=== PATIENT | female | born 1955 | race Caucasian/White ===

== ENCOUNTER 2019-09-14 13:52 | Inpatient (IN) | payer OTHER ==
[~2019-09-14] VITALS: Ht 160 cm; Wt 81.8 kg
[2019-09-14] MEDS ORDERED: IPRATROPIUM 0.5MG/ALBUTEROL 2.5MG INH SOL UD 3ML (DUONEB)(J7620) NEB ONE ×2 (14:30→16:45)
[2019-09-14] MEDS ORDERED: AMLO25TA PO (14:40)
[2019-09-14] MEDS ORDERED: GABA-845 PO (14:42)
--- NOTE | 2019-09-14 14:53 | REP ---
Left os calcis: Two views. History: Trauma. Findings: Axial and lateral views demonstrate prominent Achilles and plantar calcaneal spurs. No calcaneal fracture is seen. No erosive changes seen. Bones, joints and soft tissues are otherwise unremarkable. Impression: Prominent heel spurs. No traumatic abnormality noted. Electronically Signed by Reji Stevenson MD 09/14/2019 02:44 P
[2019-09-14 15:11] LABS: BASO # 0.1 10^3/uL (0.0-0.2); BASO % 0.4 % (0.0-1.0); EOS # 0.2 10^3/uL (0.0-0.5); HEMOGLOBIN 13.3 g/dl (12.0-15.5); LYMPH # 1.4 10^3/uL (1.5-5.0); MEAN CORPUSCULAR HEMOGLOBIN 29.1 pg (27.0-33.0); MEAN CORPUSCULAR HGB CONC 31.7 g/dl (32.0-36.5); MEAN CORPUSCULAR VOLUME 91.9 fl (80.0-96.0); MONO # 0.9 10^3/uL (0.0-0.8); MONO % 5.8 % (0.0-5.0); NEUTROPHILS # 12.6 10^3/uL (1.5-8.5); NEUTROPHILS % 83.4 % (36.0-66.0); PLATELET COUNT, AUTOMATED 254 10^3/uL (150-450); RED BLOOD COUNT 4.57 10^6/uL (4.00-5.40); WHITE BLOOD COUNT 15.1 10^3/uL (4.0-10.0)
--- NOTE | 2019-09-14 15:18 | REP ---
Left great toe series: Four views. History: Trauma. Findings: Four views of the left great toe demonstrate mild osteoarthritic spurring at the first MTP and first IP joints. No fracture or subluxation is seen. No opaque foreign body noted. Impression: Mild osteoarthritis. No fracture seen. Electronically Signed by Reji Stevenson MD 09/14/2019 03:50 P
[2019-09-14 15:31] LABS: ERYTHROCYTE SEDIMENTATION RATE 15 mm/hr (0-30)
[2019-09-14 15:32] LABS: BLOOD UREA NITROGEN 22 MG/DL (7-18); C REACTIVE PROTEIN QUANTITATIV 0.38 MG/DL (0.00-0.30); CALCIUM LEVEL 9.3 MG/DL (8.8-10.2); CARBON DIOXIDE LEVEL 29 MEQ/L (21-32); CHLORIDE LEVEL 105 MEQ/L (98-107); CREATININE FOR GFR 0.86 MG/DL (0.55-1.30); GLOMERULAR FILTRATION RATE > 60.0 (>45); GLUCOSE, FASTING 104 MG/DL (70-100); SODIUM LEVEL 141 MEQ/L (136-145)
[2019-09-14 17:32] LABS: HEMOGLOBIN A1c 6.3 %
[2019-09-14] MEDS ORDERED: EMER1CHW PO (18:12)
[2019-09-14] MEDS ORDERED: ATOR1TAB21 PO (18:12)
[2019-09-14] MEDS ORDERED: CIPRODEX AU (18:12)
[2019-09-14] MEDS ORDERED: VENL75CA47 PO (18:12)
[2019-09-14] MEDS ORDERED: IPRA0.00 INH (18:12)
[2019-09-14] MEDS ORDERED: LEVO25TA34 PO (18:12)
[2019-09-14] MEDS ORDERED: GABA800T4 PO (18:12)
[2019-09-14] MEDS ORDERED: MELO15TA28 PO (18:12)
[2019-09-14] MEDS ORDERED: METF10004 PO (18:12)
[2019-09-14] MEDS ORDERED: LOSA50TA88 PO (18:12)
[2019-09-14] MEDS ORDERED: FURO20TA2 PO (18:12)
[2019-09-14] MEDS ORDERED: TRAZ150T90 PO (18:12)
[2019-09-14] MEDS ORDERED: AMLO10TA5 PO (18:12)
[2019-09-14] MEDS ORDERED: CHAN1PAK13 PO (18:12)
[2019-09-14] MEDS ORDERED: INCR1INH INH (18:12)
[2019-09-14] MEDS ORDERED: ACID1TAB PO (18:12)
[2019-09-14] MEDS ORDERED: DICL1GEL3 TOP (18:12)
[2019-09-14] MEDS ORDERED: FUROSEMIDE 20 MG TAB PO PRN (19:45)
[2019-09-14] MEDS ORDERED: GLUCAGON FOR INJ 1 MG VIAL (J1610) SC PRN (19:45)
[2019-09-14] MEDS ORDERED: DEXTROSE 50% 50 ML SYRINGE IV PRN (19:45)
[2019-09-14] MEDS ORDERED: IPRATROPIUM 0.5MG/ALBUTEROL 2.5MG INH SOL UD 3ML (DUONEB)(J7620) INH PRN (19:45)
[2019-09-14] MEDS ORDERED: GLUCOSE 4 GM CHEW TABLET PO PRN (19:45)
[2019-09-14] MEDS ORDERED: CIPRODEX OTIC SUSP 7.5ML AU PRN (19:45)
--- NOTE | 2019-09-14 19:45 | HPEPDOC ---
[facility] Medical History & Physical Date of Admission Sep 14, 2019 Date of Service: Sep 14, 2019 Attending Physician: BONIFACIO HERNANDEZ MD History and Physical CHIEF COMPLAINT: Left foot injury HISTORY OF PRESENT ILLNESS: [id number] female with past medical history of diabetes mellitus, diabetic neuropathy, COPD, hypothyroidism and hypertension, presents from home with left foot injury. She reports injuring her left foot 4 days ago by dropping a heavy object on it. She reports that she has a history of poor healing due to diabetes mellitus, reports that his been getting worse over the past 4 days, reports serous drainage which is why she came in today. She also reports a wound on her left heel due to injury, which is also draining some serous fluid. She denies any fever, chills, nausea, vomiting, diarrhea. She denies any progression of infection from prior to up into her foot or leg, kareem es any calf redness or tenderness. 10 point review of system is negative except for above PAST MEDICAL HISTORY: 1. Diabetes mellitus. 2. COPD. 3. Diabetic neuropathy. 4. Hypothyroidism. 5. Hypertension. 6. Active smoker PAST SURGICAL HISTORY: 1. Multiple hernia repairs. 2. C-sections. 3. Hysterectomy. SOCIAL HISTORY: Current smoker, a few cigarettes a day, history of one pack per day for over 30 years. Social alcohol use. Smokes marijuana FAMILY HISTORY: Adopted ALLERGIES: Please see below. HOME MEDICATIONS: Please see below. PHYSICAL EXAMINATION: VITAL SIGNS: Please see below. GENERAL: No distress HEENT: Normocephalic, atraumatic, moist mucous membranes NECK: Supple CARDIOVASCULAR EXAMINATION: S1, S2, no murmurs RESPIRATORY EXAMINATION: Clear to auscultation, no wheezing ABDOMINAL EXAMINATION: Soft, nontender, nondistended, positive bowel sounds EXTREMITIES: Left big toe with small cut, minimal surrounding erythema, no tenderness, no drainage. Left heel with small wound, superficial, no drainage, no surrounding erythema or tenderness. SKIN: No rash NEUROLOGICAL EXAMINATION: Alert and oriented 3, no focal deficits PSYCHIATRIC EXAMINATION: Calm and cooperative LABORATORY DATA: See below. IMAGING: Foot x-ray negative for bone involvement MICROBIOLOGY: Please see below. ASSESSMENT: 63-year-old female with history of diabetes mellitus, diabetic neuropathy, COPD, hypothyroidism and hypertension, presents with nonhealing left foot wound. . PLAN: 1. Left foot injury with subsequent wound. Poor healing due to history of diabetes mellitus, reports history of MRSA, empiric vancomycin and Merrem (allergic to penicillins, would like Pseudomonas and anaerobic coverage for now). Podiatry consulted by emergency department, harper Yan pending, blood cultures pending. 2. Diabetes mellitus. Hold home meds, sliding scale insulin before meals and at bedtime 3. COPD Stable, continue home meds 4. Hypertension. Continue home Norvasc and losartan 5. Hypothyroidism. Continue levothyroxine DVT prophylaxis: Heparin subcutaneous GI prophylaxis: Not needed Vital Signs Vital Signs Date Time Temp Pulse Resp B/P (MAP) Pulse Ox O2 Delivery O2 Flow Rate FiO2 09/14/19 19:31 99.7 70 18 154/91 (112) 95 Room Air Laboratory Data Labs 24H Laboratory Tests 2 09/14/19 14:38: Estimated Mean Plasma Glucose 134H, Hemoglobin A1c 6.3 09/14/19 14:45: Immature Granulocyte % (Auto) 0.4, Neutrophils (%) (Auto) 83.4H, Lymphocytes (%) (Auto) 9.0L, Monocytes (%) (Auto) 5.8H, Eosinophils (%) (Auto) 1.0, Basophils (%) (Auto) 0.4, Neutrophils # (Auto) 12.6H, Lymphocytes # (Auto) 1.4L, Monocytes # (Auto) 0.9H, Eosinophils # (Auto) 0.2, Basophils # (Auto) 0.1, Nucleated Red Blood Cells % (auto) 0.0, Erythrocyte Sedimentation Rate 15, Anion Gap 7L, Glomerular Filtration Rate > 60.0, Calcium Level 9.3, C-Reactive Protein, Quantitative 0.38H 09/14/19 17:21: Bedside Glucose (Misc Panel) 94 CBC/BMP Laboratory Tests 09/14/19 14:45 Microbiology Microbiology 09/14/19 Blood Culture, Received Pending 09/14/19 Blood Culture, Received Pending Home Medications Scheduled Amlodipine Besylate (Amlodipine Besylate) 10 Mg Tablet, 10 MG PO DAILY Atorvastatin Calcium (Atorvastatin Calcium) 20 Mg Tablet, 20 MG PO DAILY Diclofenac Sodium (Diclofenac Sodium) 1% 100GM Gel..gram., 1 DOSE TOP TID APPLY TO RIGHT SHOULDER AND RIGHT HIP Gabapentin (Gabapentin) 800 Mg Tablet, 800 MG PO TID Ipratropium/Albuterol Sulfate (Iprat-Albut 0.5-3(2.5) mg/3 ml) 3 Ml Ampul.neb, 1 JOSE INH BID Lactobacillus Acidophilus (Acidophilus) 1 Each Tablet, 1 TAB PO BID Levothyroxine Sodium (Levoxyl) 25 Mcg Tablet, 25 MCG PO DAILY Losartan Potassium (Losartan Potassium) 50 Mg Tablet, 50 MG PO DAILY Meloxicam (Meloxicam) 15 Mg Tablet, 15 MG PO DAILY Metformin HCl (Metformin HCl) 1,000 Mg Tablet, 1,000 MG PO BID Trazodone HCl (Trazodone HCl) 150 Mg Tablet, 150 MG PO QHS Umeclidinium [place] (Incruse Ellipta) 62.5 Mcg Blst.w.dev, 62.5 MCG INH DAILY Varenicline Tartrate (Chantix) 1 Mg Tablet, 1 MG PO DAILY PRESCRIBED BID, BUT PATIENT ONLY TAKES DAILY DUE TO SIDE EFFECTS OF VERY VIVID DREAMS Venlafaxine HCl (Venlafaxine HCl ER) 75 Mg Cap.er.24h, 225 MG PO QHS INCREASING TO VENLAFAXINE ER 150MG, 300MG QHS Vit C/Ascorb Sod/Multivit-Min (Emergen-C 500 mg Chewable Tab) 500 Mg Tab.chew, 1 CHW PO DAILY Scheduled PRN Ciprofloxacin/Dexamethasone (Ciprodex Otic Suspension) 7.5 Ml Drops.susp, 4 DROP AU BID PRN for RECURRENT EAR INFECTIONS Furosemide (Furosemide) 20 Mg Tablet, 20 MG PO DAILY PRN for EDEMA Ipratropium/Albuterol Sulfate (Iprat-Albut 0.5-3(2.5) mg/3 ml) 3 Ml Ampul.neb, 1 JOSE INH BID PRN for SHORTNESS OF BREATH Allergies Coded Allergies: diltiazem (Verified Allergy, Severe, ANAPHYLAXSIS, 09/14/19) Penicillins (Verified Allergy, Unknown, 09/14/19) ANAPH A-FIB/CHADSVASC A-FIB History Current/History of A-Fib/PAF?: No BONIFACIO HERNANDEZ MD Sep 14, 2019 19:45
[2019-09-14] MEDS ORDERED: VENLAFAXINE **XR** 75MG CAPSULE PO SCH (21:00)
[2019-09-14] MEDS ORDERED: HumaLOG INSULIN (NovoLOG) PER UNIT SC SCH (21:00)
[2019-09-14] MEDS ORDERED: traZODone 50 MG TAB PO SCH (21:00)
[2019-09-14] MEDS ORDERED: MEROPENEM IV SCH (21:00)
[2019-09-14] MEDS: HEPARIN SOD (PORCINE) 5000 UNITS/ML VIAL SC SCH (21:28)
[2019-09-14] MEDS: GABAPENTIN 400 MG CAP PO SCH (21:29)
[2019-09-14 21:51] VITALS: BP 146/72
[2019-09-14] MEDS: MEROPENEM INJ 1 GM in IV 1 EA IV SCH (21:52)
--- NOTE | 2019-09-14 22:09 | PHACANCOPD ---
PHARMACY VANCOMYCIN DOSING Pt Demographics Demographics Patient Age:63 , Weight:81.820 , Gender: female Adjusted Body Weight Date: 09/14/19, Adjusted Body Weight: [64.2] Kg Events Past 24 Hours Events Past 24 Hours: NO: Dialysis, Diuretic Therapy, Change in CrCl, Fever, Elevation in WBC, Pending Diagnostics, Pending Procedures, Other Vancomycin Vancomycin indication: FOOT INFECTION Vancomycin Target Ranges: 15-20 mcg/ml Vancomycin Load Y/N: Yes Load Dose Date Time Vancomycin Load Dose: 2G Date:09/14/19 Time: Vancomycin Dose Date: 09/14/19. Current Vancomycin Dose: [1G IV Q12H] Intermittent Dosing?: No Labs Labs Item Value Date Time White Blood Count 15.1 10^3/uL H 09/14/19 1445 Neutrophils # (Auto) 12.6 10^3/uL H 09/14/19 1445 Creatinine 0.86 MG/DL 09/14/19 1445 Micro Microbiology 09/14/19 Blood Culture, Received Pending 09/14/19 Blood Culture, Received Pending Creatinine Clearance Date:09/14/19. Creatinine Clearance: [59ML/MIN]. Assessment and Plan Maintaining Current Dose?: Yes Reason for dose change: No Dose Change Pharmacist Note Pharmacist Note Date: 09/14/19. Pharmacist note: Pt is a 63 year old female being treated being treated for a foot infection goal trough 15-20mcg/ml. The patient has not been treated with vancomycin here at [facility] before. To achieve goal a 2g loading dose will start 09/14/19 @22:00. Maintenance therapy will consist of 1g IV every 12 hours. A trough is scheduled for 09/16/19 @ 09:00. We will continue to monitor and adjust the dose as needed. CHRIS LLANOS PHARMACY Sep 14, 2019 22:09
[2019-09-14] MEDS ORDERED: VANCOMYCIN HCL 1,000 MG, VIAL MATE ADAPTER 1 EACH in D5W 250 ML IV ONE (23:00)
[2019-09-14] MEDS: VANCOMYCIN HCL 1,000 MG, VIAL MATE ADAPTER 1 EACH in D5W 250 ML IV SCH (23:08)
[2019-09-14] MEDS ORDERED: ACETAMINOPHEN TAB 650MG DOSE (2X325MG) PO PRN (23:30)
[2019-09-15] MEDS: MEROPENEM INJ 1 GM in IV 1 EA IV SCH ×2 (05:30→12:26)
[2019-09-15 05:38] VITALS: BP 148/116
[2019-09-15] MEDS ORDERED: LEVOTHYROXINE 25MCG TABLET (0.025MG) PO SCH (06:00)
[2019-09-15] MEDS: HEPARIN SOD (PORCINE) 5000 UNITS/ML VIAL SC SCH ×3 (06:27→12:38)
[2019-09-15 06:28] LABS: HEMATOCRIT 37.8 % (36.0-47.0); HEMOGLOBIN 12.3 g/dl (12.0-15.5); MEAN CORPUSCULAR HEMOGLOBIN 29.2 pg (27.0-33.0); MEAN CORPUSCULAR HGB CONC 32.5 g/dl (32.0-36.5); MEAN CORPUSCULAR VOLUME 89.8 fl (80.0-96.0); PLATELET COUNT, AUTOMATED 192 10^3/uL (150-450); RED BLOOD COUNT 4.21 10^6/uL (4.00-5.40); WHITE BLOOD COUNT 9.9 10^3/uL (4.0-10.0)
[2019-09-15 06:53] LABS: ALBUMIN 3.4 GM/DL (3.2-5.2); ALT/SGPT 25 U/L (12-78); BILIRUBIN,TOTAL 0.6 MG/DL (0.2-1.0); BLOOD UREA NITROGEN 17 MG/DL (7-18); CALCIUM LEVEL 8.7 MG/DL (8.8-10.2); CARBON DIOXIDE LEVEL 32 MEQ/L (21-32); CHLORIDE LEVEL 105 MEQ/L (98-107); CREATININE FOR GFR 0.75 MG/DL (0.55-1.30); GLOMERULAR FILTRATION RATE > 60.0 (>45); GLUCOSE, FASTING 83 MG/DL (70-100); MAGNESIUM LEVEL 1.8 MG/DL (1.8-2.4); POTASSIUM SERUM 3.7 MEQ/L (3.5-5.1); SODIUM LEVEL 141 MEQ/L (136-145); TOTAL PROTEIN 6.8 GM/DL (6.4-8.2)
[2019-09-15] MEDS: HumaLOG INSULIN (NovoLOG) PER UNIT SC SCH ×2 (06:54→12:26)
[2019-09-15] MEDS ORDERED: IPRATROPIUM 0.5MG/ALBUTEROL 2.5MG INH SOL UD 3ML (DUONEB)(J7620) INH SCH (08:00)
[2019-09-15] MEDS ORDERED: LOSARTAN 50 MG TAB PO SCH (09:00)
[2019-09-15] MEDS ORDERED: amLODIPine 10 MG TAB PO SCH (09:00)
[2019-09-15] MEDS ORDERED: ATORVASTATIN 20 MG TAB PO SCH (09:00)
[2019-09-15] MEDS ORDERED: MAG SULF 1GM/100ML (MAG RUN) 1 GM in IV 1 EA IV ONE (09:15)
[2019-09-15] MEDS: GABAPENTIN 400 MG CAP PO SCH ×2 (09:30→16:12)
[2019-09-15 09:31] VITALS: BP 148/116
[2019-09-15] MEDS: VANCOMYCIN HCL 1,000 MG, VIAL MATE ADAPTER 1 EACH in D5W 250 ML IV SCH (09:37)
[2019-09-15] MEDS ORDERED: POTASSIUM CHLORIDE 10 MEQ SR TABLET PO ONE (10:00)
[2019-09-15 14:00] VITALS: BP 143/79
[2019-09-15] MEDS ORDERED: CLIN150C14 PO (15:30)
--- NOTE | 2019-09-15 16:43 | DS.PDOC ---
Discharge Summary General Date of Admission Sep 14, 2019 at 19:34 Date of Discharge 09/15/2019 Attending Physician: BONIFACIO HERNANDEZ MD Discharge Summary PROCEDURES PERFORMED DURING STAY: None. ADMITTING DIAGNOSES: 1. Left foot wound secondary to injury. DISCHARGE DIAGNOSES: 1. Left foot wound secondary to injury. COMPLICATIONS/CHIEF COMPLAINT: Copd/Diabetes Millitus/Htn/Hypothydiodsim. HISTORY OF PRESENT ILLNESS: 63-year-old female with past medical history diabetes mellitus, diabetic neuropathy, COPD, hypothyroidism and hyper tension was admitted for left foot wound. Patient reports history of resistant organisms and poor wound healing due to uncontrolled diabetes mellitus. Patient has no systemic signs of infection, imaging is not concerning for deep infection, wound is not draining, doesn't appear to require any surgical intervention or prolonged IV antibiotics. Patient will be discharged on clindamycin with outpatient follow-up with a mix house tender and PCP. Patient is currently without any complaints, agrees with discharge plan and follow-up. HOSPITAL COURSE: As above. DISCHARGE MEDICATIONS: Please see below. ALLERGIES: Please see below. PHYSICAL EXAMINATION: VITAL SIGNS: Please see below. GENERAL: No distress HEENT: Normocephalic, atraumatic, moist mucous membranes NECK: Supple CARDIOVASCULAR EXAMINATION: S1, S2, no murmurs RESPIRATORY EXAMINATION: Clear to auscultation, no wheezing ABDOMINAL EXAMINATION: Soft, nontender, nondistended, positive bowel sounds EXTREMITIES: Left big toe with small cut, minimal surrounding erythema, no tenderness, no drainage. Left heel with small wound, superficial, no drainage, no surrounding erythema or tenderness. SKIN: No rash NEUROLOGICAL EXAMINATION: Alert and oriented 3, no focal deficits PSYCHIATRIC EXAMINATION: Calm and cooperative LABORATORY DATA: Please see below. IMAGING: X-ray without bone involvement PROGNOSIS: Fair ACTIVITY: As tolerated. DIET: Consistent carbs DISCHARGE PLAN: Patient will follow with mix house tender and PCP in 1-2 weeks DISPOSITION: Home. DISCHARGE INSTRUCTIONS: 1. As above. DISCHARGE CONDITION: Stable. TIME SPENT ON DISCHARGE: Greater than 33 minutes. Vital Signs/I&Os Vital Signs Date Time Temp Pulse Resp B/P (MAP) Pulse Ox O2 Delivery O2 Flow Rate FiO2 09/15/19 14:00 99.3 68 18 143/79 (100) 95 Room Air I&O- Last 24 Hours up to 6 AM 09/15/19 06:00 Intake Total 590 ml Output Total 0 ml Balance 590 ml Laboratory Data Labs 24H Laboratory Tests 2 09/14/19 17:21: Bedside Glucose (Misc Panel) 94 09/14/19 21:25: Bedside Glucose (Misc Panel) 100 09/15/19 06:10: Nucleated Red Blood Cells % (auto) 0.0, Anion Gap 4L, Glomerular Filtration Rate > 60.0, Calcium Level 8.7L, Magnesium Level 1.8, Total Bilirubin 0.6, Aspartate Amino Transf (AST/SGOT) 22, Alanine Aminotransferase (ALT/SGPT) 25, Alkaline Phosphatase 80, Total Protein 6.8, Albumin 3.4, Albumin/Globulin Ratio 1.00 09/15/19 11:06: Bedside Glucose (Misc Panel) 169H CBC/BMP Laboratory Tests 09/15/19 06:10 FSBS Laboratory Tests Test 09/14/19 17:21 09/14/19 21:25 09/15/19 11:06 Range/Units Bedside Glucose (Misc Panel) 94 100 169 80-115 MG/DL Microbiology Microbiology 09/14/19 Blood Culture - Preliminary, Resulted No growth after 24 hours . All specim... 09/14/19 Blood Culture - Preliminary, Resulted No growth after 24 hours . All specim... Discharge Medications Scheduled Amlodipine Besylate (Amlodipine Besylate) 10 Mg Tablet, 10 MG PO DAILY, (Reported) Atorvastatin Calcium (Atorvastatin Calcium) 20 Mg Tablet, 20 MG PO DAILY, (Reported) Clindamycin Hcl (Clindamycin HCl) 150 Mg Capsule, 300 MG PO Q8H Diclofenac Sodium (Diclofenac Sodium) 1% 100GM Gel..gram., 1 DOSE TOP TID, (Reported) APPLY TO RIGHT SHOULDER AND RIGHT HIP Gabapentin (Gabapentin) 800 Mg Tablet, 800 MG PO TID, (Reported) Ipratropium/Albuterol Sulfate (Iprat-Albut 0.5-3(2.5) mg/3 ml) 3 Ml Ampul.neb, 1 JOSE INH BID, (Reported) Lactobacillus Acidophilus (Acidophilus) 1 Each Tablet, 1 TAB PO BID, (Reported) Levothyroxine Sodium (Levoxyl) 25 Mcg Tablet, 25 MCG PO DAILY, (Reported) Losartan Potassium (Losartan Potassium) 50 Mg Tablet, 50 MG PO DAILY, (Reported) Meloxicam (Meloxicam) 15 Mg Tablet, 15 MG PO DAILY, (Reported) Metformin HCl (Metformin HCl) 1,000 Mg Tablet, 1,000 MG PO BID, (Reported) Trazodone HCl (Trazodone HCl) 150 Mg Tablet, 150 MG PO QHS, (Reported) Umeclidinium [place] (Incruse Ellipta) 62.5 Mcg Blst.w.dev, 62.5 MCG INH DAILY, (Reported) Varenicline Tartrate (Chantix) 1 Mg Tablet, 1 MG PO DAILY, (Reported) PRESCRIBED BID, BUT PATIENT ONLY TAKES DAILY DUE TO SIDE EFFECTS OF VERY VIVID DREAMS Venlafaxine HCl (Venlafaxine HCl ER) 75 Mg Cap.er.24h, 225 MG PO QHS, (Reported) INCREASING TO VENLAFAXINE ER 150MG, 300MG QHS Vit C/Ascorb Sod/Multivit-Min (Emergen-C 500 mg Chewable Tab) 500 Mg Tab.chew, 1 CHW PO DAILY, (Reported) Scheduled PRN Ciprofloxacin/Dexamethasone (Ciprodex Otic Suspension) 7.5 Ml Drops.susp, 4 DROP AU BID PRN for RECURRENT EAR INFECTIONS, (Reported) Furosemide (Furosemide) 20 Mg Tablet, 20 MG PO DAILY PRN for EDEMA, (Reported) Ipratropium/Albuterol Sulfate (Iprat-Albut 0.5-3(2.5) mg/3 ml) 3 Ml Ampul.neb, 1 JOSE INH BID PRN for SHORTNESS OF BREATH, (Reported) Allergies Coded Allergies: diltiazem (Verified Allergy, Severe, ANAPHYLAXSIS, 09/14/19) Penicillins (Verified Allergy, Unknown, ANAPHYLAXIS, 09/14/19) BONIFACIO HERNANDEZ MD Sep 15, 2019 16:43
== END 2019-09-15 17:18 | disposition home or self-care (01) | DRG 384 ==
LOC: M ED 13:52 → M ED INP 19:34 → M MSPAV 20:51
PROVIDERS: ADMIT Internal Medicine; ATTEND Internal Medicine
DX: S91.115A Laceration without foreign body of left lesser toe(s) without damage to nail, initial encounter (principal); E11.40 Type 2 diabetes mellitus with diabetic neuropathy, unspecified; W20.8XXA Other cause of strike by thrown, projected or falling object, initial encounter; Y92.9 Unspecified place or not applicable; S90.922A Unspecified superficial injury of left foot, initial encounter; J44.9 Chronic obstructive pulmonary disease, unspecified; E03.9 Hypothyroidism, unspecified; I10 Essential (primary) hypertension; F17.210 Nicotine dependence, cigarettes, uncomplicated; Z79.84 Long term (current) use of oral hypoglycemic drugs; Z79.899 Other long term (current) drug therapy; Z88.0 Allergy status to penicillin; Z88.8 Allergy status to other drugs, medicaments and biological substances

== ENCOUNTER 2019-11-12 11:49 | Emergency (ER) | payer MEDICAID, OTHER, SELFPAY ==
[~2019-11-12] VITALS: Ht 160 cm; Wt 82.5 kg
[~2019-11-12 11:49] MED LIST: ACID1TAB PO; AMLO10TA5 PO; AMLO25TA PO; ATOR1TAB21 PO; CHAN1PAK13 PO; CIPRODEX AU; CLIN150C14 PO; DICL1GEL3 TOP; EMER1CHW PO; FURO20TA2 PO; GABA-845 PO; GABA800T4 PO; INCR1INH INH; IPRA0.00 INH; LEVO25TA34 PO; LOSA50TA88 PO; MELO15TA28 PO; METF10004 PO; TRAZ150T90 PO; VENL75CA47 PO
--- NOTE | 2019-11-12 13:56 | REP ---
Lumbar spine five views: There are no comparisons. Vertebral body heights and alignment are normal. There is degenerative disc disease at every lumbar level, most advanced at the lower lumbar levels. The pedicles and facets are unremarkable. There is no spondylolysis or spondylolisthesis. The sacroiliac articulations are unremarkable. Impression: Multilevel degenerative disc disease. No compression deformity, fracture or listhesis. Electronically Signed by Sage Reina MD 11/12/2019 01:47 P
[2019-11-12 14:05] VITALS: BP 145/75
--- NOTE | 2019-11-12 14:07 | REP ---
Pelvis right hip: Three views. History: Injury in a fall. Findings: AP view of the pelvis shows an intact pelvic ring. No sacral or pelvic fracture is seen. Visualized bowel gas pattern is unremarkable. No ischial or pubic fracture is appreciated. AP and frog-leg views of the right hip show smooth rounded femoral head. There is acetabular osteophyte formation. There is greater trochanteric spurring and vascular calcification. There is a old soft tissue ossicle adjacent to the greater trochanter on the frog-leg view. This is not an acute finding. Impression: No fracture or subluxation. Degenerative changes. Electronically Signed by Reji Stevenson MD 11/12/2019 04:57 P
== END 2019-11-12 14:06 | disposition home or self-care (01) ==
LOC: M ED 11:49
DX: S70.01XA Contusion of right hip, initial encounter (principal); M25.751 Osteophyte, right hip; M70.60 Trochanteric bursitis, unspecified hip; M51.36 Other intervertebral disc degeneration, lumbar region; M54.5 Low back pain; W00.9XXA Unspecified fall due to ice and snow, initial encounter; Y92.099 Unspecified place in other non-institutional residence as the place of occurrence of the external cause; Y93.9 Activity, unspecified; Y99.9 Unspecified external cause status; F17.200 Nicotine dependence, unspecified, uncomplicated; I10 Essential (primary) hypertension; E78.00 Pure hypercholesterolemia, unspecified; J45.909 Unspecified asthma, uncomplicated; J44.9 Chronic obstructive pulmonary disease, unspecified; Z87.01 Personal history of pneumonia (recurrent); G47.30 Sleep apnea, unspecified; Z87.440 Personal history of urinary (tract) infections; Z87.442 Personal history of urinary calculi; K76.0 Fatty (change of) liver, not elsewhere classified; E03.9 Hypothyroidism, unspecified; E11.21 Type 2 diabetes mellitus with diabetic nephropathy; F41.9 Anxiety disorder, unspecified; F32.9 Major depressive disorder, single episode, unspecified; D75.9 Disease of blood and blood-forming organs, unspecified; Z86.14 Personal history of Methicillin resistant Staphylococcus aureus infection; Z79.899 Other long term (current) drug therapy; Z88.0 Allergy status to penicillin; Z88.8 Allergy status to other drugs, medicaments and biological substances

== ENCOUNTER 2019-11-22 10:46 | Emergency (ER) | payer BC, SELFPAY ==
[~2019-11-22] VITALS: Ht 160 cm; Wt 81.9 kg
[2019-11-22 10:47] VITALS: BP 162/88
[2019-11-22 12:30] LABS: ALBUMIN 3.6 GM/DL (3.2-5.2); ALT/SGPT 22 U/L (12-78); BILIRUBIN,TOTAL 0.2 MG/DL (0.2-1.0); BLOOD UREA NITROGEN 26 MG/DL (7-18); CALCIUM LEVEL 8.6 MG/DL (8.8-10.2); CARBON DIOXIDE LEVEL 26 MEQ/L (21-32); CHLORIDE LEVEL 110 MEQ/L (98-107); CREATININE FOR GFR 0.75 MG/DL (0.55-1.30); FREE THYROXINE INDEX 3.3 % (1.3-4.8); GLOMERULAR FILTRATION RATE > 60.0 (>45); GLUCOSE, FASTING 136 MG/DL (70-100); POTASSIUM SERUM 4.5 MEQ/L (3.5-5.1); SODIUM LEVEL 143 MEQ/L (136-145); T UPTAKE 34 % (30-39); THYROXINE (T4) 9.7 UG/DL (4.5-12.0); TOTAL PROTEIN 6.9 GM/DL (6.4-8.2)
[2019-11-22] MEDS ORDERED: MELO15TA28 PO (12:38)
[2019-11-22] MEDS ORDERED: VENL75CA47 PO (12:38)
[2019-11-22] MEDS ORDERED: GABA800T4 PO (12:38)
[2019-11-22] MEDS ORDERED: LOSA50TA88 PO (12:38)
[2019-11-22] MEDS ORDERED: LEVO25TA34 PO (12:39)
[2019-11-22 13:16] LABS: HEMOGLOBIN A1c 6.2 %
== END 2019-11-22 12:49 | disposition home or self-care (01) ==
LOC: M ED 10:46
DX: I10 Essential (primary) hypertension (principal); Z76.0 Encounter for issue of repeat prescription; E11.9 Type 2 diabetes mellitus without complications; J44.9 Chronic obstructive pulmonary disease, unspecified; E07.9 Disorder of thyroid, unspecified; F17.200 Nicotine dependence, unspecified, uncomplicated; Z79.84 Long term (current) use of oral hypoglycemic drugs; Z79.899 Other long term (current) drug therapy; Z88.0 Allergy status to penicillin; Z88.8 Allergy status to other drugs, medicaments and biological substances

== ENCOUNTER → 2019-12-17 | Outpatient (REF) | payer BC | LOC: M LAB REF 12:39 | PROVIDERS: ATTEND Registered Nurse | DX: Z11.4 Encounter for screening for human immunodeficiency virus [HIV] (principal) ==

== ENCOUNTER 2020-07-29 10:59 | Emergency (ER) | payer BC ==
[~2020-07-29] VITALS: Ht 160 cm; Wt 90.8 kg
[~2020-07-29 10:59] MED LIST changes: -AMLO10TA5 PO; +AMLO1TAB25 PO
[2020-07-29] MEDS ORDERED: IPRATROPIUM HFA INHALER 12.9 GRAMS (ATROVENT HFA) INH ONE (12:15)
[2020-07-29] MEDS ORDERED: predniSONE 20 MG TAB PO ONE (12:15)
[2020-07-29] MEDS ORDERED: ALBUTEROL 90 MCG/ACT 8GM HFA INHALER INH ONE (12:15)
--- NOTE | 2020-07-29 12:37 | REPVR ---
PROCEDURE INFORMATION: Exam: XR Chest, 1 View Exam date and time: 07/29/2020 12:19 PM Age: 64 years old Clinical indication: Shortness of breath; Additional info: SOB, cough TECHNIQUE: Imaging protocol: XR of the chest Views: 1 view. COMPARISON: No relevant prior studies available. FINDINGS: Lungs: Unremarkable. No consolidation. Pleural space: Unremarkable. No pleural effusion. No pneumothorax. Heart/Mediastinum: Mild prominence of the cardiac silhouette. Bones/joints: Degenerative change of the spine. Enchondroma versus bone infarct in the left humeral diaphysis. IMPRESSION: Mild prominence of the cardiac silhouette. Electronically signed by: Merlyn Claire On 07/29/2020 12:37:04 PM
[2020-07-29] MEDS ORDERED: PRED20TA PO (13:06)
[2020-07-29] MEDS ORDERED: MUCI600T31 PO (13:06)
[2020-07-29] MEDS ORDERED: DOXY100C37 PO (13:06)
[2020-07-29] MEDS ORDERED: ALBU83IN NEB (13:06)
[2020-07-29 13:08] VITALS: BP 182/79
--- NOTE | 2020-07-30 06:36 | ECGEPIP ---
[facility] - ED Test Date: 2020-07-29 Pat Name: VAL VASQUEZ Department: Room: - Gender: Female Supply Chain Logistics Manager: LISBETH : 1955 Requested By: HANNAH FAITH PA-C. Order Number: [id number] Reading MD: Mark Hurst Measurements Intervals Philip Rate: 56 P: -41 IL: 127 QRS: -26 QRSD: 125 T: 18 QT: 422 QTc: 411 Interpretive Statements SINUS BRADYCARDIA RIGHT BUNDLE BRANCH BLOCK PROBABLE SEPTAL MYOCARDIAL INFARCTION, OF INDETERMINATE AGE NO PRIORS FOR COMPARISON Electronically Signed on 07-30-2020 6:36:13 EDT by Mark Hurst
== END 2020-07-29 13:35 | disposition home or self-care (01) ==
LOC: M ED 10:59
DX: J45.901 Unspecified asthma with (acute) exacerbation (principal); J06.9 Acute upper respiratory infection, unspecified; R00.1 Bradycardia, unspecified; I45.10 Unspecified right bundle-branch block; F17.200 Nicotine dependence, unspecified, uncomplicated; Z79.899 Other long term (current) drug therapy; Z88.0 Allergy status to penicillin; Z88.8 Allergy status to other drugs, medicaments and biological substances
CPT/HCPCS: 71045; 93005; 99284; U0003

== ENCOUNTER → 2021-01-09 | Outpatient (CLI) | payer BC, MEDICARE ==
[~2021-01-09] MED LIST changes: +ALBU83IN NEB; +CIPR7.5D5 AU; -CIPRODEX AU; -CLIN150C14 PO; +CLIN150C15 PO; +DOXY100C37 PO; +MUCI600T31 PO; +PRED20TA PO
--- NOTE | 2021-01-09 14:38 | REP ---
INDICATION: TOBACCO,ABUSE. COMPARISON: None. FINDINGS: There are no lung nodules or masses. There are no infiltrates or pleural effusions. There are artifacts from mediastinal fat inferiorly in the lingula and inferiorly in the right middle lobe. IMPRESSION: Category [address] low-dose lung screening CT of the chest. The probability of malignancy is less than 1%. Depending on risk factors consider annual follow-up low-dose lung screening chest CT. <Electronically signed by Sage Reina > 01/09/21 [id number]
== END ==
LOC: M RAD 10:52
PROVIDERS: ATTEND Nurse Practitioner Family
DX: Z72.0 Tobacco use (principal)

== ENCOUNTER → 2021-02-09 | Outpatient (REF) | payer MEDICARE | LOC: M SFHCLERA 11:39 | PROVIDERS: ATTEND Nurse Practitioner Family | DX: R19.7 Diarrhea, unspecified (principal); R14.0 Abdominal distension (gaseous); R10.13 Epigastric pain ==

== ENCOUNTER → 2021-05-01 | Outpatient (CLI) | payer MEDICARE ==
[~2021-05-01] MED LIST changes: -DOXY100C37 PO; +DOXY1CAP62 PO; +GABA-283 PO; -GABA-845 PO
--- NOTE | 2021-05-01 23:06 | ECWPNPC ---
PATIENT NAME: VAL VASQUEZ : 1955 GENDER: FEMALE VISIT DATE: 05/01/2021 DISCHARGE DATE: 05/01/21942 VISIT LOCKED DATE TIME: PHYSICIAN: ALBER FARIAS PHYSICIAN PAGER NO: ACTIVE RESOURCE: ALBER FARIAS REASON FOR APPOINTMENT 1. DDD AND OSTEOARTHRITIS HISTORY OF PRESENT ILLNESS DEPRESSION SCREENING: PHQ-2 (2015 EDITION) LITTLE INTEREST OR PLEASURE IN DOING THINGS?NOT AT ALL FEELING DOWN, DEPRESSED, OR HOPELESS?NOT AT ALL TOTAL SCORE0 GENERAL: 65-YEAR-OLD FEMALE BEING REFERRED BY [facility], DR. JONO PITTS ,FOR PERSISTENT NECK AND LOW BACK PAIN. ALSO HAS A HISTORY OF NEUROPATHY AND NIDDM. HAS SUFFERED FROM CHRONIC PAIN FOR SEVERAL YEARS. HAD INJECTION THERAPY WITH [facility] IN [place] APPROXIMATELY 1 YEAR AGO. STATES SHE HAD INJECTIONS INTO HER NECK AND LOW BACK. WORST AREA OF PAIN IS OVER RIGHT SHOULDER. PAIN IS AGGRAVATED WITH RANGE OF JOINT MOTION OF THE RIGHT ARM AND NECK. HAS BEEN ON CELEBREX IN THE PAST THAT HAS BEEN HELPFUL. CURRENTLY ON GABAPENTIN PRESCRIBED BY PRIMARY CARE AND HAVING GOOD RESULTS WITH NEUROPATHY IN THE LOWER EXTREMITIES. 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 DENIES BOWEL OR BLADDER INCONTINENCE. DENIES RECENT FEVER ILLNESS OR SUDDEN WEIGHT LOSS. -. FALL RISK SCREENING: SCREENING : NO FALLS REPORTED IN THE LAST YEAR. PAIN SCREENING: PATIENT HAS A COMPLAINT OF ACUTE OR CHRONIC PAIN :YES LOCATION OF PAIN:NECK, LOW BACK INTENSITY OF PAIN (SCALE OF 1 TO 10):8 WHAT DOES YOUR PAIN FEEL LIKE:BURNING, CONTINOUS, TENDER, THROBBING DURATION:CONTINOUS, CONSTANT, ALL DAY PAIN IS INCREASED BY:PROLONGED STANDING, OTHERS WALKING PAIN IS DECREASED BY:USE OF PAIN MEDICATIONS, OTHERS CELEBREX NURSING NOTE: -. PAIN CENTER INTAKE QUESTIONS: DO YOU HAVE A HISTORY OF MRSA? :NO DO YOU TAKE A BLOOD THINNERS? :NO DO YOU HAVE ANY BLEEDING DISORDERS? :NO ANY NEW NUMBNESS OR WEAKNESS IN YOUR LEGS OR ARMS? :YES BOTH HANDS AND LEGS ANY PACEMAKER,DEFIBRILLATOR, OR DORSAL COLUMN STIMULATOR? :NO DO YOU HAVE ANY RASHES OR OPEN SORES? :NO ARE YOU ALLERGIC TO IV DYE? :NO ARE YOU DIABETIC? :YES TYPE 2 ANY NEW PROBLEMS WITH YOUR MEDICATIONS? :NO HAVE YOU RECEIVED A VACCINE IN THE PAST 30 DAYS? :NO DO YOU PLAN TO RECEIVE A VACCINE IN THE NEXT 21 DAYS? :NO DO YOU NEED ANY PRESCRIPTION? :NO DO YOU TAKE ANY IMMUNOSUPPRESSIVE MEDICATIONS? :NO IS THERE A CHANCE YOU COULD BE ? :NO ARE YOU BREAST FEEDING? :NO CURRENT MEDICATIONS TAKING VENLAFAXINE HCL ER 75 MG CAPSULE EXTENDED RELEASE 24 HOUR TAKE THREE CAPSULES BY MOUTH EVERY DAY ORAL ONCE A DAY TAKING CELECOXIB 200 MG CAPSULE TAKE ONE CAPSULE BY MOUTH EVERY DAY NEEDED ORAL , NOTES: NOT RIGHT NOW TAKING GLUCOMETER DIRECTED , NOTES: DISPENSE BRAND COVERED BY INSURANCE ICD10 E11.9 TAKING BLOOD GLUCOSE TEST - STRIP DIRECTED IN VITRO TWICE DAILY, NOTES: DISPENSE BRAND COVERED BY INSURANCE ICD10 E11.9 TAKING LANCETS 30G - MISCELLANEOUS DIRECTED INTRAVENOUSLY TWICE DAILY, NOTES: DISPENSE BRAND COVERED BY INSURANCE ICD10 E11.9 TAKING ALBUTEROL SULFATE HFA 108 (90 BASE) MCG/ACT AEROSOL SOLUTION 1 PUFF NEEDED INHALATION EVERY 4 HRS TAKING INCRUSE ELLIPTA 62.5 MCG/INH AEROSOL POWDER BREATH ACTIVATED 1 PUFF INHALATION ONCE A DAY TAKING GLUCOMETER 1 DIRECTED BID FOR CHECKING BLOOD SUGAR, NOTES: DISPENSE BRAND COVERED BY INSURANCE, ICD10: E11.9 TAKING TEST STRIPS - DIRECTED BID W/ GLUCOMETER FOR CHECKING BLOOD SUGAR, NOTES: DISPENSE BRAND COVERED BY INSURANCE, ICD10: E11.9 TAKING ATORVASTATIN CALCIUM 40 MG TABLET 1 TABLET ORAL ONCE A DAY TAKING AMLODIPINE BESYLATE 10 MG TABLET 1 TABLET ORAL ONCE A DAY TAKING LOSARTAN POTASSIUM 50 MG TABLET 1 TABLET ORAL ONCE A DAY TAKING MELOXICAM 15 MG TABLET 1 TABLET ORAL ONCE A DAY TAKING GABAPENTIN 800 MG TABLET TAKE ONE TABLET BY MOUTH THREE TIMES A DAY ORAL THREE TIMES DAILY TAKING METFORMIN HCL 1000 MG TABLET 1 TABLET WITH A MEAL ORAL BID TAKING LEVOTHYROXINE SODIUM 25 MCG TABLET TAKE ONE TABLET BY MOUTH EVERY DAY ORAL DAILY TAKING TRAZODONE HCL 150 MG TABLET TAKE ONE TABLET BY MOUTH AT BEDTIME ORAL ONCE A DAY TAKING ALBUTEROL SULFATE (2.5 MG/3ML) 0.083% NEBULIZATION SOLUTION 3 ML NEEDED INHALATION EVERY 6 HRS NOT-TAKING PREDNISONE 20 MG TABLET 2 TABLET ORALLY ONCE A DAY NOT-TAKING DOXYCYCLINE MONOHYDRATE 100 MG CAPSULE 1 CAPSULE ORALLY BID NOT-TAKING NITROFURANTOIN MONOHYD MACRO 100 MG CAPSULE TAKE ONE CAPSULE BY MOUTH TWICE A DAY FOR 7 DAYS ORAL MEDICATION LIST REVIEWED AND RECONCILED WITH THE PATIENT PAST MEDICAL HISTORY TYPE 2 DIABETES HTN OSTEOARTHRITIS COPD NEUROPATHY- LEGS AND HANDS ASTHMA BACK BACK HIGH CHOLESTEROL DEPRESSION ANXIETY NECK PAIN MODERNA 1ST: 01/04/2021 2ND: 02/01/2021 ALLERGIES PENICILLIN (FOR ALLERGIES USE ONLY): ANAPHYLAXIS - ALLERGY CARDIZEM: ANAPHYLAXIS SURGICAL HISTORY C-SECTIONS 2X 1975/1977 HYSTERECTOMY 1979 CARPEL TUNNEL RIGHT HAND DOG BITE SURGERY 1979' HERNIA REPAIR X9 FAMILY HISTORY FATHER: MOTHER: SON(S): ALIVE DAUGHTER(S): ALIVE 1 SON(S) , 1 DAUGHTER(S) - HEALTHY. FAMILY HISTORY UNKNOWN - PT ADOPTED. SOCIAL HISTORY GENERAL: TOBACCO USE ARE YOU A:CURRENT SMOKER ARE YOU INTERESTED IN QUITTING?READY TO QUIT COUNSELED THE PATIENT ON TOBACCO USE, CESSATION IUNOMNQV32/12/2021 HOW MANY CIGARETTES A DAY DO YOU SMOKE?5 OR LESS HOW SOON AFTER YOU WAKE UP DO YOU SMOKE YOUR FIRST CIGARETTE?AFTER 60 MIN HOW OFTEN DO YOU SMOKE CIGARETTES?SOME DAYS, BUT NOT EVERY DAY SMOKING CESSATION INFORMATION GIVEN02/09/2021 VAPORNO E-CIGARETTENO LATEX QUESTIONNAIRE LATEX ALLERGY : HAVE YOU EVER DEVELOPED ANY TYPE OF REACTION AFTER HANDLING LATEX PRODUCTS SUCH RUBBER GLOVES, CONDOMS, DIAPHRAGMS, BALLOONS, SOCKS, OR UNDERWEAR?NO LATEX ALLERGY : HAVE YOU EVER DEVELOPED ANY TYPE OF REACTION DURING OR AFTER DENTAL APPOINTMENT, VAGINAL/RECTAL EXAMINATION, SURGICAL PROCEDURE, OR ANY OTHER EXPOSURE?NO LATEX RISK : HAVE YOU EVER HAD ANY DIFFICULTY BREATHING OR HIVES AFTER EATING OR HANDLING ANY FRUITS, OR VEGETABLES; SUCH KIWI, BANANAS, STONE FRUITS, OR CHESTNUTSNO LATEX RISK : DO YOU HAVE A PREVIOUS PERSONAL HISTORY OF MORE THAN NINE SURGERIES, SPINA BIFIDA, OR REPEATED CATHERIZATIONS? NO LATEX RISK : ARE YOU FREQUENTLY EXPOSED TO LATEX PRODUCTS IN YOUR OCCUPATION?NO DATE ASKED : 05/01/2021 ALCOHOL USE: YES, VERY RARELY. LUNG CANCER SCREENING SMOKING STATUS:CURRENT SMOKER IS THE PATIENT BETWEEN THE AGE OF 55 AND 77?YES HAS THE PATIENT EVER BEEN DIAGNOSED WITH LUNG CANCER?NO PACK YEARS = NUMBER OF PACKS PER DAY SMOKED X NUMBER OF YEARS SMOKED:40 CREATE REFERRAL:GENERATE AND CREATE REFERRAL TO THE ONCOLOGY NURSE NAVIGATOR (SMP) LISTING USING THE LDCT SCAN PROCEDURE DISCLAIMER:PLEASE ADD DISCLAIMER FROM BROWSE SECTION OF THE NOTE BMI CARE GOAL FOLLOW-UP ABOVE NORMAL BMI FOLLOW-UPGIVING ENCOURAGEMENT TO EXERCISE ALCOHOL SCREENING DID YOU HAVE A DRINK CONTAINING ALCOHOL IN THE PAST YEAR?YES HOW OFTEN DID YOU HAVE SIX OR MORE DRINKS ON ONE OCCASION IN THE PAST YEAR?NEVER (0 POINTS) HOW MANY DRINKS DID YOU HAVE ON A TYPICAL DAY WHEN YOU WERE DRINKING IN THE PAST YEAR?1 OR 2 (0 POINTS) HOW OFTEN DID YOU HAVE A DRINK CONTAINING ALCOHOL IN THE PAST YEAR?MONTHLY OR LESS (1 POINT) POINTS1 INTERPRETATIONNEGATIVE RECREATIONAL DRUG USE DRUG USE?YES MARIJUANA CAFFEINE CAFFEINE USE?YES HOW OFTEN AND HOW MUCH? 3-4 CUPS OF COFFEE PER DAY SEXUAL HX HAD SEX IN THE LAST 12 MONTHS (VAGINAL, ORAL, OR ANAL)?YES WITHMEN ONLY USE PROTECTION?NO HAVE YOU EVER HAD AN STD?NO HIV / HEP-C SCREENING HIV TEST OFFERED TO PATIENT:YES DATE OFFERED:09/26/2020 TEST ACCEPTED:YES HEP-C TEST OFFERED TO PATIENT:YES DATE OFFERED:09/26/2020 TEST ACCEPTED:YES BROCHURE PROVIDED TO PATIENTYES SHINTO [id number] LANGUAGE LANGUAGES SPOKEN:INDIAN EDUCATION LEVEL OF EDUCATION:COLLEGE LEARNING BARRIERS / SPECIAL NEEDS BARRIERS TO LEARNING?YES COMMENTS SHORT TERM MEMORY LOST HEARING IMPAIRED?YES : BOTH EARS VISION IMPAIRED?YES :CORRECTIVE LENSES COGNITIVELY IMPAIRED?NO READINESS TO LEARN?YES LEARNING PREFERENCES?YES :HANDOUTS, DEMONSTRATION/VERBAL INSTRUCTION LEARNING CAPABILITIES PRESENT?YES EMOTIONAL BARRIERS?YES COMMENTS DEPRESSION ,ANXIETY SPECIAL DEVICES?YES :CANE PRN BRANCH OFFICE ADMINISTRATOR NEEDED?NO DOMESTIC VIOLENCE STATUS: DO YOU FEEL SAFE IN YOUR ENVIRONMENT?YES OCCUPATION: UNEMPLOYED. DIET: SUGAR CONTROLLED. EXERCISE: WALKS. MARITAL STATUS: . OTHERS AT HOME: SON. HOSPITALIZATION/MAJOR DIAGNOSTIC PROCEDURE TOE INFECTION - IV ANTIBIOTIC @ [facility] 08/2019 SURG REVIEW OF SYSTEMS CONSTITUTIONAL: RECENT ILLNESS DENIES . FEVER DENIES . WEIGHT LOSS DENIES . MUSCULOSKELETAL: JOINT PAIN DENIES . JOINT STIFFNESS DENIES . GASTROENTEROLOGY: BOWEL INCONTINENCE DENIES . BLOOD IN STOOL DENIES . HEMATOLOGY/LYMPH: DENIES . BLEEDING DISORDER DENIES . NEUROLOGY: HISTORY OF SEVERE HEADACHES NOT MENTIONED DENIES . SEIZURES DENIES . CARDIOLOGY: HISTORY OF CHEST PAIN,IRREGULAR HEART BEAT NOT MENTIONED DENIES . SHORTNESS OF BREATH DENIES . RESPIRATORY: COUGH DENIES . SHORTNESS OF BREATH DENIES . ENDOCRINOLOGY: THYROID DISEASE DENIES . DIABETES DENIES . HEENT: CHANGE IN VISION DENIES . LOSS OF HEARING DENIES . TROUBLE SWALLOWING DENIES . PSYCHOLOGY: ANXIETY DENIES . DEPRESSION DENIES . UROLOGY: URINARY INCONTINENCE DENIES . BLOOD IN URINE DENIES . VITAL SIGNS WT 203 LBS, HT 63 IN, BMI 35.96 INDEX, BP 126/66 MM HG, HR 65 /MIN, RR 18 /MIN, TEMP 97.2 F, OXYGEN SAT % 96%, SAFE IN ENV? (Y/N) YEST.AVIVA MOELLER. EXAMINATION GENERAL EXAMINATION: HEENT: HEAD:, NORMOCEPHALIC, EYES:, EYES NORMAL, NOSE:, NOSE CLEAR, THROAT: NORMAL. NECK:NO LYMPHADENOPATHY, SUPPLE, NO THYROMEGALLY. LUNGS:CLEAR TO AUSCULTATION BILATERALLY, NO WHEEZES, RHONCHI, RALES. HEART:NO MURMURS, REGULAR RATE AND RHYTHM. ABDOMEN:SOFT AND NOT TENDER, NON-DISTENDED. MUSCULOSKELETAL:NORMAL RANGE OF MOTION. TRIGGER POINTS: ELICITED WITH PALPATION OVER CERVICAL SPINOUS PROCESSES AND ACROSS THE TRAPEZIUS MUSCLES BILATERALLY R>L. RESTRICTION OF ROM IS NOTED. INCREASED PAIN NOTED OVER THESE AREAS WITH RANGE OF JOINT MOTION OF THE RIGHT ARM AND NECK.. LUMBAR:MUSCLE STRENGTH TESTING 5/5 BILATERAL, PALPATION: + FOR PAIN OVER L/S SPINE. + FOR PAIN OVER L/S PARSPINALS. THORACIC SPINE: NEGATIVE FOR PAIN WITH PALPATION OF THORACIC SPINE. NEGATIVE FOR PAIN WITH PALPATION OF THORACIC PARASPINAL. CERVICAL:+ FOR PAIN WITH PALPATION OF CERVICAL SPINE. + FOR PAIN WITH PALPATION OF CERVICAL PARASPINALS. NEGATIVE FOR PAIN WITH PALPATION OF TRAPEZIUS BILAT. SKIN: NORMAL, NO RASH. NEUROLOGIC EXAM:ALERT AND ORIENTED X 3, NORMAL SENSATION TO LIGHT TOUCH UPPER/LOWER EXTREMITIES. DIAGNOSTIC TESTS REVIEWED MRI C SPINE-12/22/2020 MRI L-SPINE-12/22/2020 NCS UPPER -2020. DIAGNOSTIC: . ASSESSMENTS MYALGIA, OTHER SITE - M79.18 (PRIMARY) ARTHROPATHY, UNSPECIFIED - M12.9 TREATMENT MYALGIA, OTHER SITE START CELEBREX CAPSULE, 200 MG, 1 CAPSULE WITH FOOD, ORALLY, ONCE A DAY, 30 DAY(S), 30, REFILLS 2 START TIZANIDINE HCL TABLET, 2 MG, 1 TABLET NEEDED, ORALLY, BEFORE BEDTIME, 30 DAYS, 30, REFILLS 1 MEDICATION: PAIN VALIUM TAB 2MG ORALLY (DIAZEPAM) (ORDERED FOR 05/15/2021) MEDICATION: PAIN OXYCODONE HCL TAB 5MG ORALLY (ORDERED FOR 05/15/2021) NOTES: DISCUSSED TREATMENT OPTIONS TO INCLUDE INJECTION THERAPY AND MEDICATION MANAGEMENT. TODAY SHE IS AGREEABLE TO WORK ON RIGHT SHOULDER PAIN ISSUES. I HAVE PRESCRIBED TIZANIDINE 2 MG TO TAKE AT NIGHTTIME FOR MUSCLE SPASMS ASSOCIATED WITH DISRUPTION IN HER SLEEP. I HAVE ORDERED CELEBREX 200 MG ONCE DAILY FOR GENERALIZED ARTHROPATHY. PT 2 TIMES A WEEK X6 WEEKS FOR MYOFASCIAL RELEASE RIGHT SHOULDER AND NECK. TRIGGER POINT INJECTIONS RIGHT NECK, RIGHT SHOULDER,RIGHT THORACIC PRINTED AND REVIEWED PRE PROCEDURE INFORMATION, PATIENT VERBALIZED UNDERSTANDING MARIO MOELLER. REFERRAL TO:PHYSICAL THERAPIST REASON:2XWK X 6 WKS,MYOFASCIAL RELEASE,STRETCHING,MASSAGE OTHERS CLINICAL NOTES: ISTOP REGISTRY REVIEWED AND DEMONSTRATES COMPLIANCE. BRINGS IN MEDICATIONS WHICH IS APPROPRIATE FOR WHAT WAS DISPENSED. RECENT URINE TOXICOLOGY REVIEWED. NO UNAUTHORIZED MEDICATIONS. NO ILLICIT SUBSTANCES AND PRESCRIBED MEDICATIONS WERE PRESENT. . PROCEDURE CODES [id number] ESTABILISHED PATIENT [facility] F[facility] CHARGE DISPOSITION & COMMUNICATION FOLLOW UP POST/F/U PT (REASON: TRIGGER POINT INJECTIONS RIGHT NECK RIGHT SHOULDER,RIGHT THORACIC,FOLLOW UP PT) ELECTRONICALLY SIGNED BY SUSANNA VALDIVIA ON 05/01/2021 AT 03:19 PM EDT DISCLAIMER : THIS IS A VISIT SUMMARY EXTRACTED FROM THE [email or web address] CHART. IT IS NOT A COPY OF THE [email or web address] PROGRESS NOTE. BAKARI
== END ==
LOC: M PAIN 08:30
PROVIDERS: ATTEND Nurse Practitioner Family
DX: M79.18 Myalgia, other site (principal); M12.9 Arthropathy, unspecified; E11.40 Type 2 diabetes mellitus with diabetic neuropathy, unspecified; J44.9 Chronic obstructive pulmonary disease, unspecified; F17.210 Nicotine dependence, cigarettes, uncomplicated; Z86.59 Personal history of other mental and behavioral disorders; Z88.0 Allergy status to penicillin; Z88.8 Allergy status to other drugs, medicaments and biological substances; Z79.51 Long term (current) use of inhaled steroids; Z79.84 Long term (current) use of oral hypoglycemic drugs; Z79.899 Other long term (current) drug therapy

== ENCOUNTER → 2021-05-15 | Outpatient (CLI) | payer MEDICARE | LOC: M LABSMTC 10:14 | PROVIDERS: ATTEND Anesthesiology | DX: Z01.812 Encounter for preprocedural laboratory examination (principal); Z20.822 Contact with and (suspected) exposure to COVID-19 ==

== ENCOUNTER → 2021-05-19 | Outpatient (CLI) | payer MEDICARE ==
[~2021-05-19] MED LIST changes: +BUPIVACAINE HCL 0.25% 10ML VIAL As Ordered ONE; +BUPIVACAINE HCL 0.25% 30ML VIAL As Ordered ONE; +TRIAMCINOLONE ACETONIDE SUSP 40 MG/ML VIAL (J3301) As Ordered ONE; +diazePAM 2 MG TAB As Ordered ONE; +oxyCODONE 5MG TAB As Ordered ONE
--- NOTE | 2021-05-24 00:22 | ECWPNPC ---
PATIENT NAME: VAL VASQUEZ : 1955 GENDER: FEMALE VISIT DATE: 05/19/2021 DISCHARGE DATE: 05/19/21 1037 VISIT LOCKED DATE TIME: PHYSICIAN: KIMBERLY MICHEL MD PHYSICIAN PAGER NO: ACTIVE RESOURCE: KIMBERLY MICHEL MD REASON FOR APPOINTMENT 1. TRIGGER POINT INJECTIONS RIGHT NECK RIGHT SHOULDER,RIGHT THORACIC HISTORY OF PRESENT ILLNESS GENERAL: FALL RISK SCREENING: SCREENING : NO FALLS REPORTED IN THE LAST YEAR. PAIN SCREENING: PATIENT HAS A COMPLAINT OF ACUTE OR CHRONIC PAIN :YES LOCATION OF PAIN:NECK, UPPER BACK, OTHER: INTENSITY OF PAIN (SCALE OF 1 TO 10):10 WHAT DOES YOUR PAIN FEEL LIKE:ACHING, STABBING, TENDER, SORE, OTHER "GRABBING" DURATION:CONTINOUS, AWAKENS FROM SLEEP PAIN IS INCREASED BY:ACTIVITIES, PROLONGED STANDING, OTHERS WALKING PAIN IS DECREASED BY:USE OF PAIN MEDICATIONS, OTHERS CELEBREX PLAN/GOALS/TREATMENT/INTERVENTION/FOLLOW UP:SEE PLAN NURSING NOTE: -. PAIN CENTER INTAKE QUESTIONS: DO YOU HAVE A HISTORY OF MRSA? :NO DO YOU TAKE A BLOOD THINNERS? :NO DO YOU HAVE ANY BLEEDING DISORDERS? :NO ANY NEW NUMBNESS OR WEAKNESS IN YOUR LEGS OR ARMS? :NO ANY PACEMAKER,DEFIBRILLATOR, OR DORSAL COLUMN STIMULATOR? :NO DO YOU HAVE ANY RASHES OR OPEN SORES? :NO ARE YOU ALLERGIC TO IV DYE? :NO ARE YOU DIABETIC? :YES FSBS: 116 ANY NEW PROBLEMS WITH YOUR MEDICATIONS? :NO HAVE YOU RECEIVED A VACCINE IN THE PAST 30 DAYS? :NO DO YOU PLAN TO RECEIVE A VACCINE IN THE NEXT 21 DAYS? :NO DO YOU TAKE ANY IMMUNOSUPPRESSIVE MEDICATIONS? :NO ANY HISTORY OF SEIZURES? :NO ANY HISTORY OF CARDIAC ISSUES OR EVENTS? :NO DO YOU HAVE ANY KIDNEY OR LIVER DISEASE? :NO DO YOU HAVE SLEEP APNEA? :YES DO YOU WEAR A CPAP?NO ANY RECENT HEAD INJURY? :NO DO YOU HAVE ANY NEW INFECTIONS? :NO IS THERE A CHANCE YOU COULD BE ? :N/A ARE YOU BREAST FEEDING? :N/A WHEN DID YOU LAST EAT? : 0245 WHEN DID YOU LAST DRINK? : 0800 WHAT DID YOU LAST DRINK? : WATER NAME OF PERSON DRIVING YOU HOME? : [employer]SPORT[employer] DO YOU HAVE ANY OTHER QUESTIONS OR CONCERNS? 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 TAKING ALBUTEROL SULFATE HFA 108 (90 BASE) MCG/ACT AEROSOL SOLUTION 1 PUFF NEEDED INHALATION EVERY 4 HRS TAKING INCRUSE ELLIPTA 62.5 MCG/INH AEROSOL POWDER BREATH ACTIVATED 1 PUFF INHALATION ONCE A DAY TAKING GLUCOMETER 1 DIRECTED BID FOR CHECKING BLOOD SUGAR, NOTES: DISPENSE BRAND COVERED BY INSURANCE, ICD10: E11.9 TAKING TEST STRIPS - DIRECTED BID W/ GLUCOMETER FOR CHECKING BLOOD SUGAR, NOTES: DISPENSE BRAND COVERED BY INSURANCE, ICD10: E11.9 TAKING ATORVASTATIN CALCIUM 40 MG TABLET 1 TABLET ORAL ONCE A DAY TAKING AMLODIPINE BESYLATE 10 MG TABLET 1 TABLET ORAL ONCE A DAY, NOTES: 629 TAKING LOSARTAN POTASSIUM 50 MG TABLET 1 TABLET ORAL ONCE A DAY, NOTES: 629 TAKING MELOXICAM 15 MG TABLET 1 TABLET ORAL ONCE A DAY, NOTES: 05/18/21 TAKING GABAPENTIN 800 MG TABLET TAKE ONE TABLET BY MOUTH THREE TIMES A DAY ORAL THREE TIMES DAILY, NOTES: 629 TAKING METFORMIN HCL 1000 MG TABLET 1 TABLET WITH A MEAL ORAL BID, NOTES: 05/18/21 1800 TAKING LEVOTHYROXINE SODIUM 25 MCG TABLET TAKE ONE TABLET BY MOUTH EVERY DAY ORAL DAILY TAKING TRAZODONE HCL 150 MG TABLET TAKE ONE TABLET BY MOUTH AT BEDTIME ORAL ONCE A DAY TAKING ALBUTEROL SULFATE (2.5 MG/3ML) 0.083% NEBULIZATION SOLUTION 3 ML NEEDED INHALATION EVERY 6 HRS TAKING CELEBREX 200 MG CAPSULE 1 CAPSULE WITH FOOD ORALLY ONCE A DAY, NOTES: CELECOXIB; 629 TAKING TIZANIDINE HCL 2 MG TABLET 1 TABLET NEEDED ORALLY BEFORE BEDTIME, NOTES: 05/18/21 NOT-TAKING PREDNISONE 20 MG TABLET 2 TABLET ORALLY ONCE A DAY NOT-TAKING DOXYCYCLINE MONOHYDRATE 100 MG CAPSULE 1 CAPSULE ORALLY BID NOT-TAKING NITROFURANTOIN MONOHYD MACRO 100 MG CAPSULE TAKE ONE CAPSULE BY MOUTH TWICE A DAY FOR 7 DAYS ORAL MEDICATION LIST REVIEWED AND RECONCILED WITH THE PATIENT PAST MEDICAL HISTORY TYPE 2 DIABETES HTN OSTEOARTHRITIS COPD NEUROPATHY- LEGS AND HANDS ASTHMA BACK BACK HIGH CHOLESTEROL DEPRESSION ANXIETY NECK PAIN MODERNA 1ST: 01/04/2021 2ND: 02/01/2021 ALLERGIES PENICILLIN (FOR ALLERGIES USE ONLY): ANAPHYLAXIS - ALLERGY CARDIZEM: ANAPHYLAXIS - ALLERGY FAMILY HISTORY FATHER: MOTHER: SON(S): ALIVE DAUGHTER(S): ALIVE 1 SON(S) , 1 DAUGHTER(S) - HEALTHY. FAMILY HISTORY UNKNOWN - PT ADOPTED. SOCIAL HISTORY GENERAL: TOBACCO USE ARE YOU A:CURRENT SMOKER ARE YOU INTERESTED IN QUITTING?READY TO QUIT COUNSELED THE PATIENT ON TOBACCO USE, CESSATION [id number]/29/2021 HOW MANY CIGARETTES A DAY DO YOU SMOKE?5 OR LESS HOW SOON AFTER YOU WAKE UP DO YOU SMOKE YOUR FIRST CIGARETTE?AFTER 60 MIN HOW OFTEN DO YOU SMOKE CIGARETTES?SOME DAYS, BUT NOT EVERY DAY SMOKING CESSATION INFORMATION GIVEN02/09/2021 VAPORNO E-CIGARETTENO LATEX QUESTIONNAIRE LATEX ALLERGY : HAVE YOU EVER DEVELOPED ANY TYPE OF REACTION AFTER HANDLING LATEX PRODUCTS SUCH RUBBER GLOVES, CONDOMS, DIAPHRAGMS, BALLOONS, SOCKS, OR UNDERWEAR?NO LATEX ALLERGY : HAVE YOU EVER DEVELOPED ANY TYPE OF REACTION DURING OR AFTER DENTAL APPOINTMENT, VAGINAL/RECTAL EXAMINATION, SURGICAL PROCEDURE, OR ANY OTHER EXPOSURE?NO LATEX RISK : HAVE YOU EVER HAD ANY DIFFICULTY BREATHING OR HIVES AFTER EATING OR HANDLING ANY FRUITS, OR VEGETABLES; SUCH KIWI, BANANAS, STONE FRUITS, OR CHESTNUTSNO LATEX RISK : DO YOU HAVE A PREVIOUS PERSONAL HISTORY OF MORE THAN NINE SURGERIES, SPINA BIFIDA, OR REPEATED CATHERIZATIONS? NO LATEX RISK : ARE YOU FREQUENTLY EXPOSED TO LATEX PRODUCTS IN YOUR OCCUPATION?NO DATE ASKED : 05/18/2021 ALCOHOL USE: YES, VERY RARELY. LUNG CANCER SCREENING HAS THE PATIENT EVER BEEN DIAGNOSED WITH LUNG CANCER?NO IS THE PATIENT BETWEEN THE AGE OF 55 AND 77?YES DISCLAIMER:PLEASE ADD DISCLAIMER FROM BROWSE SECTION OF THE NOTE CREATE REFERRAL:GENERATE AND CREATE REFERRAL TO THE ONCOLOGY NURSE NAVIGATOR (SMP) LISTING USING THE LDCT SCAN PROCEDURE PACK YEARS = NUMBER OF PACKS PER DAY SMOKED X NUMBER OF YEARS SMOKED:40 SMOKING STATUS:CURRENT SMOKER BMI CARE GOAL FOLLOW-UP ABOVE NORMAL BMI FOLLOW-UPGIVING ENCOURAGEMENT TO EXERCISE ALCOHOL SCREENING INTERPRETATIONNEGATIVE POINTS1 HOW OFTEN DID YOU HAVE A DRINK CONTAINING ALCOHOL IN THE PAST YEAR?MONTHLY OR LESS (1 POINT) HOW MANY DRINKS DID YOU HAVE ON A TYPICAL DAY WHEN YOU WERE DRINKING IN THE PAST YEAR?1 OR 2 (0 POINTS) HOW OFTEN DID YOU HAVE SIX OR MORE DRINKS ON ONE OCCASION IN THE PAST YEAR?NEVER (0 POINTS) DID YOU HAVE A DRINK CONTAINING ALCOHOL IN THE PAST YEAR?YES RECREATIONAL DRUG USE DRUG USE?YES MARIJUANA CAFFEINE HOW OFTEN AND HOW MUCH? 3-4 CUPS OF COFFEE PER DAY CAFFEINE USE?YES SEXUAL HX HAVE YOU EVER HAD AN STD?NO USE PROTECTION?NO WITHMEN ONLY HAD SEX IN THE LAST 12 MONTHS (VAGINAL, ORAL, OR ANAL)?YES HIV / HEP-C SCREENING BROCHURE PROVIDED TO PATIENTYES TEST ACCEPTED:YES DATE OFFERED:09/26/2020 HEP-C TEST OFFERED TO PATIENT:YES TEST ACCEPTED:YES DATE OFFERED:09/26/2020 HIV TEST OFFERED TO PATIENT:YES DRUZE [id number] UATSDIN LANGUAGE LANGUAGES SPOKEN:DANISH EDUCATION LEVEL OF EDUCATION:COLLEGE LEARNING BARRIERS / SPECIAL NEEDS BARRIERS TO LEARNING?YES COMMENTS SHORT TERM MEMORY LOST HEARING IMPAIRED?YES : BOTH EARS VISION IMPAIRED?YES :CORRECTIVE LENSES COGNITIVELY IMPAIRED?NO READINESS TO LEARN?YES LEARNING PREFERENCES?YES :HANDOUTS, DEMONSTRATION/VERBAL INSTRUCTION LEARNING CAPABILITIES PRESENT?YES EMOTIONAL BARRIERS?YES COMMENTS DEPRESSION ,ANXIETY SPECIAL DEVICES?YES :CANE PRN HOSPICE FELLOW NEEDED?NO DOMESTIC VIOLENCE DO YOU FEEL SAFE IN YOUR ENVIRONMENT?YES STATUS: OCCUPATION: UNEMPLOYED. DIET: SUGAR CONTROLLED. EXERCISE: WALKS. MARITAL STATUS: . OTHERS AT HOME: SON. VITAL SIGNS WT 196.8 LBS, HT 63 IN, BMI 34.86 INDEX, BP 133/96 MM HG, HR 85 /MIN, RR 18 /MIN, TEMP 96.7 F, OXYGEN SAT % 94%, SAFE IN ENV? (Y/N) YES, NA INITIALS AW 0907, REVIEWED BY: Rajani SNEED RN. EXAMINATION GENERAL EXAMINATION: THE PATIENT IS ALERT, ORIENTED TIMES THREE AND COOPERATIVE. LUNGS ARE CLEAR TO AUSCULTATION. HEART SHOWS REGULAR RHYTHM, NO MURMURS AND NO GALLOPS. ASSESSMENTS MYALGIA, OTHER SITE - M79.18 (PRIMARY) TREATMENT MYALGIA, OTHER SITE COMPLETION OF PROCEDURAL VISIT WHEN MEETS [id number],JAMIE L 05/19/2021 10:36:36 AM > CRITERIA MET. MEDICATION: PAIN VALIUM TAB 2MG ORALLY (DIAZEPAM)[id number],DANIEL R 05/19/2021 9:03:30 AM > VERIFIED TALON SNEED 05/19/2021 9:13:11 AM > ADMINISTERED. MEDICATION: PAIN OXYCODONE HCL TAB 5MG ORALLY [id number] R 05/19/2021 9:03:50 AM > VERIFIED TALON SNEED 05/19/2021 9:13:54 AM > ADMINISTERED. OTHERS NOTES: 05/18/21 PAT GURWINDER TO, SUPERVISOR GRADING. PROCEDURES PAIN NURSING RECORD PROCEDURE IN ROOM 0900, PHYSICIAN IN ROOM 1007, START 1011, FINISH 1014, PHYSICIAN OUT OF ROOM 1015, OUT OF ROOM 1036, ECG N/A, PATIENT SHIELDED N/A, SAFETY STRAP N/A, PREP ALCOHOL DR. MICHEL, DRESSING TEGADERM Rajani SNEED RN LOC: TALON SNEED 05/19/2021 10:11:17 AM > , 1. ALERT, ORIENTED RESP: TALON SNEED 05/19/2021 10:11:20 AM > , 1. REGULAR, NO DYSPNEA COLOR: TALON SNEED 05/19/2021 10:11:24 AM > , 1. PINK SKIN: TALON SNEED 05/19/2021 10:11:27 AM > , 1. WARM, DRY POSITION: TALON SNEED 05/19/2021 10:11:30 AM > , 5. SITTING VITALS: TALON SNEED 05/19/2021 9:30:15 AM > 127/60, 61, 16, 95% NEDRATALON 05/19/2021 9:45:46 AM > 128/79, 63, 16, 94% NEDRATALON Cece 05/19/2021 10:00:09 AM > 141/66, 65, 16, 95% JOSÉ MIGUELALINETALON Cece 05/19/2021 10:16:49 AM > 142/99, 67, 16, 94% JOSÉ MIGUELALINETALON Cece 05/19/2021 10:29:26 AM > 146/82, 69, 16, 94% COMPLETION OF PROCEDURE APPOINTMENT: POST PAIN 8, DRESSING SITE DRY AND INTACT, IV N/A, GAIT STEADY, TEACHING COMPLETED, PATIENT ACKNOWLEDGES UNDERSTANDING YES, PROCEDURE APPOINTMENT COMPLETED AT 1036 BY: Rajani SNEED RN PN TRIGGER POINT INJECTION WITH STEROIDS PRE PROCEDURE DIAGNOSIS 1. MYALGIA 2. PAIN AT RIGHT NECK AREA, RIGHT SHOULDER AREA AND RIGHT THORACIC AREA POST PROCEDURE DIAGNOSIS 1. MYALGIA 2. PAIN AT RIGHT NECK AREA, RIGHT SHOULDER AREA AND RIGHT THORACIC AREA PROCEDURE TRIGGER POINT INJECTION AT RIGHT NECK AREA, RIGHT SHOULDER AREA AND RIGHT THORACIC AREA SURGEON DR. KIMBERLY MICHEL AIRCRAFT POWER PLANT ASSEMBLER NONE ANESTHESIA LOCAL PRE PROCEDURE NOTE THE PATIENT HAS A HISTORY OF CHRONIC PAIN AT THE RIGHT NECK AREA, RIGHT SHOULDER AREA AND RIGHT THORACIC AREA. I EVALUATED THE PATIENT AND REVIEWED THE CHART. THERE IS EVIDENCE OF BANDS OF TISSUE WITH RESTRICTION OF MOVEMENT AND PRESENCE OF TRIGGER POINT AT THE RIGHT NECK AREA, RIGHT SHOULDER AREA AND RIGHT THORACIC AREA. I WENT OVER THE RISKS, ALTERNATIVES, AND BENEFITS ASSOCIATED WITH THIS PROCEDURE. THE PATIENT WOULD LIKE TO PROCEED AND GIVE CONSENT TO PERFORMED THE PROCEDURE. THE PATIENT DENIES UNEXPLAINABLE WEIGHT LOSS, FEVER, CHILLS, OR NEW CHANGES IN URINARY OR BOWEL CONTROL. THE PATIENT IS COVID-19 NEGATIVE. SHE IS HAVING A NEW TINGLING SENSATION OVER THE SHOULDERS AND NECK. IT IS A NERVE KIND OF SENSATION. IT IS EARLY AND SOMETIMES THAT CAN HAPPEN. DESCRIPTION OF PROCEDURE THE PATIENT WAS BROUGHT TO THE PROCEDURE ROOM AND PLACED IN THE SITTING POSITION. THE AREA WAS CLEANED WITH ALCOHOL. THE PROCEDURE WAS DONE USING ASEPTIC STERILE TECHNIQUE. A TIMEOUT WAS PERFORMED WHERE THE CONSENTED SITE WAS VERIFIED WITH EVERYONE IN THE ROOM. USING A 25-GAUGE NEEDLE, TRIGGER POINTS WERE INJECTED AT THE RIGHT NECK AREA, RIGHT SHOULDER AREA AND RIGHT THORACIC AREA WITH A TOTAL OF 40 ML OF BUPIVACAINE 0.25% AND KENALOG 40 MG. THE MEDICATIONS WERE VERIFIED WITH THE NURSE. THERE WAS NO EVIDENCE OF BLOOD OR PARESTHESIA DURING THE PROCEDURE. THE PATIENT WAS SENT TO THE RECOVERY ROOM. THE PATIENT WAS MOVING THE EXTREMITIES AND DOING WELL. THERE WERE NO COMPLICATIONS DURING THE PROCEDURE. ESTIMATED BLOOD LOSS WAS LESS THAN 5 ML POST PROCEDURE NOTE THE PROCEDURE DONE WAS DISCUSSED WITH THE PATIENT. THE PATIENT WILL BE SEEN IN A FOLLOW UP IN THE NEXT FEW WEEKS. I AM LOOKING FOR LONG LASTING PAIN RELIEF FOR THE PATIENT WITH THIS INTERVENTION. INSTRUCTIONS WERE GIVEN, QUESTIONS WERE ANSWERED, AND THE PATIENT EXPRESSED UNDERSTANDING AND AGREES WITH THE PLAN. I, GRIFFIN LITTLE, DOCUMENTED THE ABOVE INFORMATION ACTING A SCRIBE FOR DR. MICHEL. I HAVE REVIEWED THE ABOVE DOCUMENT, WRITTEN BY GRIFFIN LITTLE, BORING MACHINE OPERATOR, AND I VERIFY THAT IT IS ACCURATE PROCEDURE CODES 35172 INJECT TRIGGER POINTS 3/> DISPOSITION & COMMUNICATION FOLLOW UP FOLLOW UP WITH MUD CAR WORKER (REASON: POST TRIGGER POINT INJECTIONS RIGHT NECK, RIGHT SHOULDER AND RIGHT THORACIC) ELECTRONICALLY SIGNED BY KIMBERLY MICHEL MD, MD ON 05/23/2021 AT 11:28 AM EDT DISCLAIMER : THIS IS A VISIT SUMMARY EXTRACTED FROM THE [facility] CHART. IT IS NOT A COPY OF THE [employer] PROGRESS NOTE. BAKARI
== END ==
LOC: M PAIN 09:15
PROVIDERS: ATTEND Anesthesiology
DX: M79.18 Myalgia, other site (principal); E11.40 Type 2 diabetes mellitus with diabetic neuropathy, unspecified; G47.30 Sleep apnea, unspecified; J44.9 Chronic obstructive pulmonary disease, unspecified; F17.210 Nicotine dependence, cigarettes, uncomplicated; Z86.59 Personal history of other mental and behavioral disorders; Z88.0 Allergy status to penicillin; Z88.8 Allergy status to other drugs, medicaments and biological substances; Z79.51 Long term (current) use of inhaled steroids; Z79.84 Long term (current) use of oral hypoglycemic drugs; Z79.899 Other long term (current) drug therapy
CPT/HCPCS: 20553; J3301

== ENCOUNTER → 2021-06-02 | Outpatient (CLI) | payer MEDICARE ==
[~2021-06-02] MED LIST changes: -BUPIVACAINE HCL 0.25% 10ML VIAL As Ordered ONE; -BUPIVACAINE HCL 0.25% 30ML VIAL As Ordered ONE; -CLIN150C15 PO; +CLIN150C17 PO; -TRIAMCINOLONE ACETONIDE SUSP 40 MG/ML VIAL (J3301) As Ordered ONE; -diazePAM 2 MG TAB As Ordered ONE; -oxyCODONE 5MG TAB As Ordered ONE
--- NOTE | 2021-06-07 01:45 | ECWPNPC ---
PATIENT NAME: VAL VASQUEZ : 1955 GENDER: FEMALE VISIT DATE: 06/02/2021 DISCHARGE DATE: 06/02/21 1125 VISIT LOCKED DATE TIME: PHYSICIAN: KIMBERLY MICHEL MD PHYSICIAN PAGER NO: ACTIVE RESOURCE: KIMBERLY MICHEL MD REASON FOR APPOINTMENT 1. POST TRIGGER POINT INJECTIONS RIGHT NECK RIGHT SHOULDER,RIGHT THORACIC HISTORY OF PRESENT ILLNESS GENERAL: 65-YEAR-OLD FEMALE PATIENT WITH A HISTORY OF CHRONIC NECK AND RIGHT ARM PAIN. THE PATIENT RECEIVED A TRIGGER POINT INJECTION THAT UNFORTUNATELY DID NOT HELP HER. SHE HAS BEEN SUFFERING FROM THIS CONDITION FOR 10 YEARS. THE PATIENT DESCRIBES THE PAIN ACHING AND SORE WITH A PAIN SCORE RANGING FROM 6-10/10. SHE IS RECEIVING PHYSICAL THERAPY BUT THE PAIN IS STILL THERE. FALL RISK SCREENING: SCREENING ONE FALL IN LAST YEAR, NO INJURY. PAIN SCREENING: PATIENT HAS A COMPLAINT OF ACUTE OR CHRONIC PAIN :YES LOCATION OF PAIN:NECK, RIGHT SHOULDER, UPPER BACK, MID BACK INTENSITY OF PAIN (SCALE OF 1 TO 10):6 WHAT DOES YOUR PAIN FEEL LIKE:ACHING, SORE DURATION:CONTINOUS, CONSTANT, STEADY, ALL DAY PAIN IS INCREASED BY:OTHERS TURNING HEAD TO LEFT PAIN IS DECREASED BY:OTHERS HOT SHOWERS, CELEBREX NURSING NOTE: -. PAIN CENTER INTAKE QUESTIONS: DO YOU HAVE A HISTORY OF MRSA? :NO DO YOU TAKE A BLOOD THINNERS? :NO DO YOU HAVE ANY BLEEDING DISORDERS? :NO ANY NEW NUMBNESS OR WEAKNESS IN YOUR LEGS OR ARMS? :NO BOTH HANDS AND LEGS ANY PACEMAKER,DEFIBRILLATOR, OR DORSAL COLUMN STIMULATOR? :NO DO YOU HAVE ANY RASHES OR OPEN SORES? :NO ARE YOU ALLERGIC TO IV DYE? :NO ARE YOU DIABETIC? :YES TYPE 2 ANY NEW PROBLEMS WITH YOUR MEDICATIONS? :NO HAVE YOU RECEIVED A VACCINE IN THE PAST 30 DAYS? :NO DO YOU PLAN TO RECEIVE A VACCINE IN THE NEXT 21 DAYS? :NO DO YOU NEED ANY PRESCRIPTION? :NO DO YOU TAKE ANY IMMUNOSUPPRESSIVE MEDICATIONS? :NO IS THERE A CHANCE YOU COULD BE ? :NO ARE YOU BREAST FEEDING? :NO CURRENT MEDICATIONS TAKING VENLAFAXINE HCL ER 75 MG CAPSULE EXTENDED RELEASE 24 HOUR TAKE THREE CAPSULES BY MOUTH EVERY DAY ORAL ONCE A DAY TAKING GLUCOMETER DIRECTED , NOTES: DISPENSE BRAND COVERED BY INSURANCE ICD10 E11.9 TAKING BLOOD GLUCOSE TEST - STRIP DIRECTED IN VITRO TWICE DAILY, NOTES: DISPENSE BRAND COVERED BY INSURANCE ICD10 E11.9 TAKING LANCETS 30G - MISCELLANEOUS DIRECTED INTRAVENOUSLY TWICE DAILY, NOTES: DISPENSE BRAND COVERED BY INSURANCE ICD10 E11.9 TAKING ALBUTEROL SULFATE HFA 108 (90 BASE) MCG/ACT AEROSOL SOLUTION 1 PUFF NEEDED INHALATION EVERY 4 HRS TAKING INCRUSE ELLIPTA 62.5 MCG/INH AEROSOL POWDER BREATH ACTIVATED 1 PUFF INHALATION ONCE A DAY TAKING GLUCOMETER 1 DIRECTED BID FOR CHECKING BLOOD SUGAR, NOTES: DISPENSE BRAND COVERED BY INSURANCE, ICD10: E11.9 TAKING TEST STRIPS - DIRECTED BID W/ GLUCOMETER FOR CHECKING BLOOD SUGAR, NOTES: DISPENSE BRAND COVERED BY INSURANCE, ICD10: E11.9 TAKING ATORVASTATIN CALCIUM 40 MG TABLET 1 TABLET ORAL ONCE A DAY TAKING AMLODIPINE BESYLATE 10 MG TABLET 1 TABLET ORAL ONCE A DAY TAKING LOSARTAN POTASSIUM 50 MG TABLET 1 TABLET ORAL ONCE A DAY TAKING MELOXICAM 15 MG TABLET 1 TABLET ORAL ONCE A DAY TAKING GABAPENTIN 800 MG TABLET TAKE ONE TABLET BY MOUTH THREE TIMES A DAY ORAL THREE TIMES DAILY TAKING METFORMIN HCL 1000 MG TABLET 1 TABLET WITH A MEAL ORAL BID TAKING LEVOTHYROXINE SODIUM 25 MCG TABLET TAKE ONE TABLET BY MOUTH EVERY DAY ORAL DAILY TAKING TRAZODONE HCL 150 MG TABLET TAKE ONE TABLET BY MOUTH AT BEDTIME ORAL ONCE A DAY TAKING ALBUTEROL SULFATE (2.5 MG/3ML) 0.083% NEBULIZATION SOLUTION 3 ML NEEDED INHALATION EVERY 6 HRS TAKING CELEBREX 200 MG CAPSULE 1 CAPSULE WITH FOOD ORALLY ONCE A DAY, NOTES: CELECOXIB; 0630 TAKING TIZANIDINE HCL 2 MG TABLET 1 TABLET NEEDED ORALLY BEFORE BEDTIME, NOTES: 05/18/21 NOT-TAKING CELECOXIB 200 MG CAPSULE TAKE ONE CAPSULE BY MOUTH EVERY DAY NEEDED ORAL , NOTES: NOT RIGHT NOW NOT-TAKING PREDNISONE 20 MG TABLET 2 TABLET ORALLY ONCE A DAY NOT-TAKING DOXYCYCLINE MONOHYDRATE 100 MG CAPSULE 1 CAPSULE ORALLY BID NOT-TAKING NITROFURANTOIN MONOHYD MACRO 100 MG CAPSULE TAKE ONE CAPSULE BY MOUTH TWICE A DAY FOR 7 DAYS ORAL MEDICATION LIST REVIEWED AND RECONCILED WITH THE PATIENT PAST MEDICAL HISTORY TYPE 2 DIABETES HTN OSTEOARTHRITIS COPD NEUROPATHY- LEGS AND HANDS ASTHMA BACK BACK HIGH CHOLESTEROL DEPRESSION ANXIETY NECK PAIN MODERNA 1ST: 01/04/2021 2ND: 02/01/2021 ALLERGIES PENICILLIN (FOR ALLERGIES USE ONLY): ANAPHYLAXIS - ALLERGY CARDIZEM: ANAPHYLAXIS - ALLERGY SOCIAL HISTORY GENERAL: TOBACCO USE ARE YOU A:CURRENT SMOKER ARE YOU INTERESTED IN QUITTING?READY TO QUIT COUNSELED THE PATIENT ON TOBACCO USE, CESSATION [id number]/13/2021 HOW MANY CIGARETTES A DAY DO YOU SMOKE?5 OR LESS REPORTS CUTTING DOWN TO 3/DAY HOW SOON AFTER YOU WAKE UP DO YOU SMOKE YOUR FIRST CIGARETTE?AFTER 60 MIN HOW OFTEN DO YOU SMOKE CIGARETTES?SOME DAYS, BUT NOT EVERY DAY SMOKING CESSATION INFORMATION GIVEN02/09/2021 VAPORNO E-CIGARETTENO LATEX QUESTIONNAIRE LATEX ALLERGY : HAVE YOU EVER DEVELOPED ANY TYPE OF REACTION AFTER HANDLING LATEX PRODUCTS SUCH RUBBER GLOVES, CONDOMS, DIAPHRAGMS, BALLOONS, SOCKS, OR UNDERWEAR?NO LATEX ALLERGY : HAVE YOU EVER DEVELOPED ANY TYPE OF REACTION DURING OR AFTER DENTAL APPOINTMENT, VAGINAL/RECTAL EXAMINATION, SURGICAL PROCEDURE, OR ANY OTHER EXPOSURE?NO LATEX RISK : HAVE YOU EVER HAD ANY DIFFICULTY BREATHING OR HIVES AFTER EATING OR HANDLING ANY FRUITS, OR VEGETABLES; SUCH KIWI, BANANAS, STONE FRUITS, OR CHESTNUTSNO LATEX RISK : DO YOU HAVE A PREVIOUS PERSONAL HISTORY OF MORE THAN NINE SURGERIES, SPINA BIFIDA, OR REPEATED CATHERIZATIONS? NO LATEX RISK : ARE YOU FREQUENTLY EXPOSED TO LATEX PRODUCTS IN YOUR OCCUPATION?NO DATE ASKED : 05/18/2021 ALCOHOL USE: YES, VERY RARELY. LUNG CANCER SCREENING SMOKING STATUS:CURRENT SMOKER IS THE PATIENT BETWEEN THE AGE OF 55 AND 77?YES HAS THE PATIENT EVER BEEN DIAGNOSED WITH LUNG CANCER?NO PACK YEARS = NUMBER OF PACKS PER DAY SMOKED X NUMBER OF YEARS SMOKED:40 CREATE REFERRAL:GENERATE AND CREATE REFERRAL TO THE ONCOLOGY NURSE NAVIGATOR (SMP) LISTING USING THE LDCT SCAN PROCEDURE DISCLAIMER:PLEASE ADD DISCLAIMER FROM BROWSE SECTION OF THE NOTE BMI CARE GOAL FOLLOW-UP ABOVE NORMAL BMI FOLLOW-UPGIVING ENCOURAGEMENT TO EXERCISE ALCOHOL SCREENING DID YOU HAVE A DRINK CONTAINING ALCOHOL IN THE PAST YEAR?YES HOW OFTEN DID YOU HAVE A DRINK CONTAINING ALCOHOL IN THE PAST YEAR?MONTHLY OR LESS (1 POINT) HOW MANY DRINKS DID YOU HAVE ON A TYPICAL DAY WHEN YOU WERE DRINKING IN THE PAST YEAR?1 OR 2 (0 POINTS) HOW OFTEN DID YOU HAVE SIX OR MORE DRINKS ON ONE OCCASION IN THE PAST YEAR?NEVER (0 POINTS) POINTS1 INTERPRETATIONNEGATIVE RECREATIONAL DRUG USE DRUG USE?YES MARIJUANA CAFFEINE CAFFEINE USE?YES HOW OFTEN AND HOW MUCH? 3-4 CUPS OF COFFEE PER DAY SEXUAL HX HAD SEX IN THE LAST 12 MONTHS (VAGINAL, ORAL, OR ANAL)?YES WITHMEN ONLY USE PROTECTION?NO HAVE YOU EVER HAD AN STD?NO HIV / HEP-C SCREENING HIV TEST OFFERED TO PATIENT:YES DATE OFFERED:09/26/2020 TEST ACCEPTED:YES BROCHURE PROVIDED TO PATIENTYES HEP-C TEST OFFERED TO PATIENT:YES DATE OFFERED:09/26/2020 TEST ACCEPTED:YES CHURCH [id number] ORTHODOXY LANGUAGE LANGUAGES SPOKEN:SENEGALESE EDUCATION LEVEL OF EDUCATION:COLLEGE LEARNING BARRIERS / SPECIAL NEEDS CHANGE FROM LAST VISIT?NO BARRIERS TO LEARNING?YES COMMENTS SHORT TERM MEMORY LOST HEARING IMPAIRED?YES : BOTH EARS VISION IMPAIRED?YES :CORRECTIVE LENSES COGNITIVELY IMPAIRED?NO READINESS TO LEARN?YES LEARNING PREFERENCES?YES :HANDOUTS, DEMONSTRATION/VERBAL INSTRUCTION LEARNING CAPABILITIES PRESENT?YES EMOTIONAL BARRIERS?YES COMMENTS DEPRESSION ,ANXIETY SPECIAL DEVICES?YES :CANE PRN SPECIAL EVENTS ASSISTANT NEEDED?NO DOMESTIC VIOLENCE STATUS: DO YOU FEEL SAFE IN YOUR ENVIRONMENT?YES OCCUPATION: UNEMPLOYED. DIET: SUGAR CONTROLLED. EXERCISE: WALKS. MARITAL STATUS: . OTHERS AT HOME: SON. REVIEW OF SYSTEMS CONSTITUTIONAL: ANY RECENT FEVER NO . CHILLS NO . WEIGHT CHANGE OF UNKNOWN REASONS NO . GASTROENTEROLOGY: NEW UNEXPLAINABLE CHANGES IN BOWEL CONTROL NO . CONSTIPATION NO . GENITOURINARY: ANY NEW CHANGE IN BLADDER CONTROL? NO . NEUROLOGY: NEW ONSET DIZZINESS OR NEUROLOGICAL CHANGES NOT MENTIONED NO . NEW NUMBNESS OR PAIN PATTERNS NOT MENTIONED AND PERTINENT TO TODAY'S VISIT NO . CARDIOLOGY: NEW CHEST PRESSURE NO . PATIENT DENIES NO . RESPIRATORY: UNEXPLAINABLE COUGH NO . NEW SHORTNESS OF BREATH NO . EXAMINATION GENERAL EXAMINATION: THE PATIENT IS ALERT, ORIENTED TIMES THREE AND COOPERATIVE. LUNGS ARE CLEAR TO AUSCULTATION. HEART SHOWS REGULAR RHYTHM, NO MURMURS AND NO GALLOPS. THE PATIENT CAN ABDUCT THE UPPER EXTREMITIES WITH SOME DIFFICULTY ON THE RIGHT SIDE. THE RIGHT ARM IS WEAKER THAN THE LEFT ARM ON FLEXION AND EXTENSION. HAND [place] AND [employer]ILVER[employer] SALESPERSON IS REDUCED ON THE RIGHT. 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 ASSESSMENTS OTHER CHRONIC PAIN - G89.29 (PRIMARY) CERVICAL SPINAL STENOSIS - M48.02 CERVICAL DISC DISORDER WITH RADICULOPATHY, UNSPECIFIED CERVICAL REGION - M50.10 TREATMENT OTHER CHRONIC PAIN PAIN PROCEDURE [id number] OF PROCEDURE05/19/21PROCEDURE:TRIGGER POINT INJECTIONS RIGHT NECK, RIGHT SHOULDER, RIGHT THORACICAMOUNT OF PRE SEDATEVALIUM 2MG, OXYCODONE 5MGRESULT:DID NOT HELP CERVICAL SPINAL STENOSIS MED: PAIN NORCO TABLET 5MG/325MG ORALLY HYDROCODONE/ACETAMINOPHEN (ORDERED FOR 07/03/2021)[id number] MEDICATION: PAIN VALIUM TAB 2MG ORALLY (DIAZEPAM) (ORDERED FOR 07/03/2021)[id number] MED: PAIN BENADRYL TAB 25MG ORALLY DIPHENHYDRAMINE (ORDERED FOR 07/03/2021)[id number] SALINE LOCK (ORDERED FOR 07/03/2021)[id number] CLINICAL NOTES: I DISCUSSED ALTERNATIVES WITH MS. VASQUEZ. I WILL REQUEST AUTHORIZATION FOR A CERVICAL EPIDURAL STEROID INJECTION,FOR SAFETY AT C7-T1, BOOK AFTER APPROVED. THE PATIENT REPORTS UNDERSTANDING AND AGREES WITH THE PLAN. I, GRIFFIN LITTLE, DOCUMENTED THE ABOVE INFORMATION ACTING A SCRIBE FOR DR. MICHEL. I HAVE REVIEWED THE ABOVE DOCUMENT, WRITTEN BY GRIFFIN LITTLE, MINE UTILITY OPERATOR, AND I VERIFY THAT IT IS ACCURATE. VISIT CODES PROCEDURE CODES FA211 ESTABILISHED PATIENT [facility] CHARGE 78079 OFFICE/OUTPATIENT VISIT EST DISPOSITION & COMMUNICATION FOLLOW UP REQUEST AUTH FOR CERVICAL EPIDURAL STEROID INJECTION AT C7-T1 (REASON: REQUEST AUTH FOR CERVICAL EPIDURAL STEROID INJECTION AT C7-T1) ELECTRONICALLY SIGNED BY KIMBERLY MICHEL MD, MD ON 06/06/2021 AT 04:56 PM EDT DISCLAIMER : THIS IS A VISIT SUMMARY EXTRACTED FROM THE [employer] CHART. IT IS NOT A COPY OF THE [employer] PROGRESS NOTE. BAKARI
== END ==
LOC: M PAIN 09:45
PROVIDERS: ATTEND Anesthesiology
DX: G89.29 Other chronic pain (principal); M48.02 Spinal stenosis, cervical region; M50.10 Cervical disc disorder with radiculopathy, unspecified cervical region; E11.40 Type 2 diabetes mellitus with diabetic neuropathy, unspecified; J44.9 Chronic obstructive pulmonary disease, unspecified; F17.210 Nicotine dependence, cigarettes, uncomplicated; Z86.59 Personal history of other mental and behavioral disorders; Z88.0 Allergy status to penicillin; Z88.8 Allergy status to other drugs, medicaments and biological substances; Z79.51 Long term (current) use of inhaled steroids; Z79.84 Long term (current) use of oral hypoglycemic drugs; Z79.899 Other long term (current) drug therapy

== ENCOUNTER 2022-04-04 08:03 | Emergency (ER) | payer MEDICARE ==
[~2022-04-04] VITALS: Ht 160 cm; Wt 88.6 kg
[~2022-04-04 08:03] MED LIST changes: +ALBU2.5V10 NEB; -ALBU83IN NEB; +ATOR40TA75 PO; +AZIT-12 PO; +DOXY-443 PO; -DOXY1CAP62 PO; +LOSA50TA28 PO; -LOSA50TA88 PO; +TIZA2TA PO; +TRAZ1TAB14 PO; +VENTAER INH
[2022-04-04] MEDS ORDERED: FLUTISP (08:11)
[2022-04-04] MEDS ORDERED: CELE1CAP9 (08:11)
[2022-04-04] MEDS ORDERED: IPRATROPIUM 0.5MG/ALBUTEROL 2.5MG INH SOL UD 3ML (DUONEB) NEB ONE (08:30)
[2022-04-04 08:54] LABS: BASO % 0.6 % (0.0-1.0); EOS # 0.2 10^3/uL (0.0-0.5); HEMATOCRIT 40.1 % (36.0-47.0); HEMOGLOBIN 12.9 g/dl (12.0-15.5); LYMPH # 1.7 10^3/uL (1.5-5.0); LYMPH % 25.1 % (24.0-44.0); MEAN CORPUSCULAR HEMOGLOBIN 29.5 pg (27.0-33.0); MEAN CORPUSCULAR HGB CONC 32.2 g/dl (32.0-36.5); MEAN CORPUSCULAR VOLUME 91.6 fl (80.0-96.0); MONO # 0.6 10^3/uL (0.0-0.8); MONO % 9.1 % (2.0-8.0); NEUTROPHILS # 4.2 10^3/uL (1.5-8.5); NEUTROPHILS % 61.8 % (36.0-66.0); PLATELET COUNT, AUTOMATED 189 10^3/uL (150-450); RED BLOOD COUNT 4.38 10^6/uL (4.00-5.40); WHITE BLOOD COUNT 6.7 10^3/uL (4.0-10.0)
[2022-04-04 08:55] LABS: VENOUS BASE EXCESS 1.4 (-2.0-2.0); VENOUS HCO3 28.6 MEQ/L (23.0-27.0); VENOUS O2 SATURATION 79.2 % (60.0-80.0); VENOUS PARTIAL PRESSURE CO2 56.2 mmHg (38.0-50.0); VENOUS PARTIAL PRESSURE O2 43.9 mmHg (30.0-50.0); VENOUS PH 7.325 UNITS (7.330-7.430); VENOUS STANDARD HCO3 25.3 MEQ/L; VENOUS TOTAL CO2 30.4 MEQ/L (24.0-28.0)
[2022-04-04 09:21] LABS: CK-MB VALUE MASS 3.2 NG/ML (<3.6); MB/CK RELATIVE INDEX 2.71 (< OR =4)
[2022-04-04 09:34] LABS: ALBUMIN 3.3 GM/DL (3.2-5.2); ALT/SGPT 37 U/L (12-78); BILIRUBIN,DIRECT 0.2 MG/DL (0.0-0.2); BILIRUBIN,TOTAL 0.5 MG/DL (0.2-1.0); BLOOD UREA NITROGEN 21 MG/DL (7-18); CALCIUM LEVEL 8.9 MG/DL (8.8-10.2); CARBON DIOXIDE LEVEL 26 MEQ/L (21-32); CHLORIDE LEVEL 106 MEQ/L (98-107); CREATININE FOR GFR 0.79 MG/DL (0.55-1.30); GLOMERULAR FILTRATION RATE > 60.0 (>45); GLUCOSE, FASTING 237 MG/DL (70-100); POTASSIUM SERUM 5.6 MEQ/L (3.5-5.1); SODIUM LEVEL 137 MEQ/L (136-145); TOTAL PROTEIN 6.6 GM/DL (6.4-8.2)
[2022-04-04] MEDS: COMBIVENT RESPIMAT 100-20MCG INHALER 4GM INH SCH ×3 (09:35→10:15)
[2022-04-04] MEDS ORDERED: predniSONE 20 MG TAB PO ONE (09:35)
[2022-04-04] MEDS ORDERED: ISOVUE-370 76% 100ML VIAL As Ordered ONE (10:56)
[2022-04-04 13:00] VITALS: BP 151/80
[2022-04-04] MEDS ORDERED: DOXY-342 PO (13:15)
[2022-04-04] MEDS ORDERED: PRED20TA PO (13:15)
== END 2022-04-04 13:35 | disposition home or self-care (01) ==
LOC: M ED 08:03
DX: J44.1 Chronic obstructive pulmonary disease with (acute) exacerbation (principal); E11.9 Type 2 diabetes mellitus without complications; I10 Essential (primary) hypertension; E78.5 Hyperlipidemia, unspecified; F17.200 Nicotine dependence, unspecified, uncomplicated; R93.2 Abnormal findings on diagnostic imaging of liver and biliary tract; N28.1 Cyst of kidney, acquired; R93.422 Abnormal radiologic findings on diagnostic imaging of left kidney; Z79.84 Long term (current) use of oral hypoglycemic drugs; Z79.890 Hormone replacement therapy; Z79.899 Other long term (current) drug therapy; Z88.0 Allergy status to penicillin; Z88.8 Allergy status to other drugs, medicaments and biological substances
CPT/HCPCS: 71046; 71275; 80048; 80076; 82550; 82553; 82803; 84132; 84484; 85025; 87486; 87581; 87633; 87798; 93005; 93041; 94640; 94760; 99285; J7512; Q9967

== ENCOUNTER 2022-04-20 15:23 | Emergency (ER) | payer OTHER, MEDICARE ==
[~2022-04-20] VITALS: Ht 160 cm; Wt 84.1 kg
[~2022-04-20 15:23] MED LIST changes: +CELE1CAP9; +DOXY-342 PO; +FLUTISP
[2022-04-20 15:24] VITALS: BP 156/70
[2022-04-20] MEDS ORDERED: NAPR-837 PO (17:23)
[2022-04-20] MEDS ORDERED: METH-1164 PO (17:23)
== END 2022-04-20 17:39 | disposition home or self-care (01) ==
LOC: M ED 15:23
DX: S13.9XXA Sprain of joints and ligaments of unspecified parts of neck, initial encounter (principal); S33.5XXA Sprain of ligaments of lumbar spine, initial encounter; V43.02XA Car driver injured in collision with other type car in nontraffic accident, initial encounter; Y92.481 Parking lot as the place of occurrence of the external cause; E11.9 Type 2 diabetes mellitus without complications; E07.9 Disorder of thyroid, unspecified; J44.9 Chronic obstructive pulmonary disease, unspecified; F17.200 Nicotine dependence, unspecified, uncomplicated; M48.061 Spinal stenosis, lumbar region without neurogenic claudication; Z79.84 Long term (current) use of oral hypoglycemic drugs; Z79.899 Other long term (current) drug therapy; Z88.0 Allergy status to penicillin; Z88.8 Allergy status to other drugs, medicaments and biological substances

== ENCOUNTER 2022-06-06 13:19 | Emergency (ER) | payer MEDICARE, OTHER ==
[~2022-06-06] VITALS: Ht 160 cm; Wt 88.3 kg
[~2022-06-06 13:19] MED LIST changes: +METH-1164 PO; +NAPR-837 PO
[2022-06-06 17:22] VITALS: BP 170/94
== END 2022-06-06 17:26 | disposition home or self-care (01) ==
LOC: M ED 13:19
DX: M17.12 Unilateral primary osteoarthritis, left knee (principal); M25.562 Pain in left knee; E11.9 Type 2 diabetes mellitus without complications; I10 Essential (primary) hypertension; E78.5 Hyperlipidemia, unspecified; E07.9 Disorder of thyroid, unspecified; F17.200 Nicotine dependence, unspecified, uncomplicated; F12.10 Cannabis abuse, uncomplicated; Z79.84 Long term (current) use of oral hypoglycemic drugs; Z79.890 Hormone replacement therapy; Z79.899 Other long term (current) drug therapy; Z88.0 Allergy status to penicillin; Z88.8 Allergy status to other drugs, medicaments and biological substances

== ENCOUNTER 2022-07-24 12:52 | Emergency (ER) | payer MEDICARE ==
[~2022-07-24] VITALS: Ht 160 cm; Wt 91.0 kg
[2022-07-24] MEDS ORDERED: IPRATROPIUM 0.5MG/ALBUTEROL 2.5MG INH SOL UD 3ML (DUONEB) NEB ONE (16:15)
[2022-07-24 16:54] LABS: VENOUS BASE EXCESS 2.5 (-2.0-2.0); VENOUS HCO3 28.8 MEQ/L (23.0-27.0); VENOUS O2 SATURATION 95.4 % (60.0-80.0); VENOUS PARTIAL PRESSURE CO2 50.9 mmHg (38.0-50.0); VENOUS PARTIAL PRESSURE O2 80.1 mmHg (30.0-50.0); VENOUS STANDARD HCO3 26.6 MEQ/L; VENOUS TOTAL CO2 30.3 MEQ/L (24.0-28.0)
[2022-07-24 17:23] LABS: BASO # 0.1 10^3/uL (0.0-0.2); BASO % 0.7 % (0.0-1.0); EOS # 0.2 10^3/uL (0.0-0.5); EOS % 2.4 % (0.0-3.0); HEMATOCRIT 42.1 % (36.0-47.0); HEMOGLOBIN 13.2 g/dl (12.0-15.5); LYMPH # 2.4 10^3/uL (1.5-5.0); LYMPH % 24.1 % (24.0-44.0); MEAN CORPUSCULAR HEMOGLOBIN 28.8 pg (27.0-33.0); MEAN CORPUSCULAR HGB CONC 31.4 g/dl (32.0-36.5); MEAN CORPUSCULAR VOLUME 91.7 fl (80.0-96.0); MONO # 0.8 10^3/uL (0.0-0.8); MONO % 8.4 % (2.0-8.0); NEUTROPHILS # 6.3 10^3/uL (1.5-8.5); NEUTROPHILS % 64.1 % (36.0-66.0); PLATELET COUNT, AUTOMATED 258 10^3/uL (150-450); RED BLOOD COUNT 4.59 10^6/uL (4.00-5.40); WHITE BLOOD COUNT 9.8 10^3/uL (4.0-10.0)
[2022-07-24 17:34] LABS: CK-MB VALUE MASS 2.9 NG/ML (<3.6); MB/CK RELATIVE INDEX 1.76 (< OR =4)
[2022-07-24 17:46] LABS: ALBUMIN 3.7 GM/DL (3.2-5.2); ALT/SGPT 26 U/L (12-78); BILIRUBIN,DIRECT < 0.1 MG/DL (0.0-0.2); BILIRUBIN,TOTAL 0.2 MG/DL (0.2-1.0); BLOOD UREA NITROGEN 22 MG/DL (7-18); CALCIUM LEVEL 8.7 MG/DL (8.8-10.2); CARBON DIOXIDE LEVEL 30 MEQ/L (21-32); CHLORIDE LEVEL 105 MEQ/L (98-107); CREATININE FOR GFR 0.81 MG/DL (0.55-1.30); GLOMERULAR FILTRATION RATE > 60.0 (>45); GLUCOSE, FASTING 99 MG/DL (70-100); NT-PRO BNP 61 PG/ML (<125); POTASSIUM SERUM 4.4 MEQ/L (3.5-5.1); SODIUM LEVEL 139 MEQ/L (136-145)
[2022-07-24 18:02] LABS: RSV AMPLIFICATION NEGATIVE (NEGATIVE)
[2022-07-24] MEDS ORDERED: MEDR4PAK PO (18:15)
[2022-07-24] MEDS ORDERED: dexameTHASONE 20MG/5ML VIAL (J1100 PER 1MG) IM ONE (18:15)
[2022-07-24] MEDS ORDERED: DOXYCYCLINE HYCLATE 100MG TABLET PO ONE (18:15)
[2022-07-24] MEDS ORDERED: DOXY-443 PO (18:16)
[2022-07-24 19:11] LABS: CK-MB VALUE MASS 3.3 NG/ML (<3.6); MB/CK RELATIVE INDEX 2.34 (< OR =4)
[2022-07-24 19:33] VITALS: BP 195/88
== END 2022-07-24 19:37 | disposition home or self-care (01) ==
LOC: M ED 12:52
DX: J44.1 Chronic obstructive pulmonary disease with (acute) exacerbation (principal); I95.9 Hypotension, unspecified; I50.9 Heart failure, unspecified; E03.9 Hypothyroidism, unspecified; E78.5 Hyperlipidemia, unspecified; J45.909 Unspecified asthma, uncomplicated; J43.9 Emphysema, unspecified; G60.9 Hereditary and idiopathic neuropathy, unspecified; F41.9 Anxiety disorder, unspecified; F32.9 Major depressive disorder, single episode, unspecified; Z87.440 Personal history of urinary (tract) infections; Z79.84 Long term (current) use of oral hypoglycemic drugs; Z79.899 Other long term (current) drug therapy; Z88.0 Allergy status to penicillin; Z88.8 Allergy status to other drugs, medicaments and biological substances
CPT/HCPCS: 71046; 80047; 80048; 80076; 82550; 82553; 82803; 83880; 84484; 85025; 85379; 87631; 93005; 94640; 94664; 96372; 99284; J1100

== ENCOUNTER 2022-09-17 15:37 | Emergency (ER) | payer MEDICARE ==
[~2022-09-17] VITALS: Ht 160 cm; Wt 87.8 kg
[~2022-09-17 15:37] MED LIST changes: -DOXY-342 PO; +DOXY100C81 PO; +MEDR4PAK PO
[2022-09-17 15:39] VITALS: BP 136/70
[2022-09-17 16:51] LABS: VENOUS BASE EXCESS 1.5 (-2.0-2.0); VENOUS HCO3 27.9 MEQ/L (23.0-27.0); VENOUS O2 SATURATION 68.6 % (60.0-80.0); VENOUS PARTIAL PRESSURE CO2 50.6 mmHg (38.0-50.0); VENOUS PARTIAL PRESSURE O2 35.2 mmHg (30.0-50.0); VENOUS PH 7.359 UNITS (7.330-7.430); VENOUS STANDARD HCO3 25.1 MEQ/L; VENOUS TOTAL CO2 29.4 MEQ/L (24.0-28.0)
[2022-09-17 17:03] LABS: BASO % 0.5 % (0.0-1.0); EOS % 0.5 % (0.0-3.0); HEMATOCRIT 43.5 % (36.0-47.0); HEMOGLOBIN 13.6 g/dl (12.0-15.5); LYMPH # 0.6 10^3/uL (1.5-5.0); LYMPH % 8.3 % (24.0-44.0); MEAN CORPUSCULAR HEMOGLOBIN 28.3 pg (27.0-33.0); MEAN CORPUSCULAR HGB CONC 31.3 g/dl (32.0-36.5); MEAN CORPUSCULAR VOLUME 90.6 fl (80.0-96.0); MONO # 0.9 10^3/uL (0.0-0.8); MONO % 12.4 % (2.0-8.0); NEUTROPHILS # 5.8 10^3/uL (1.5-8.5); NEUTROPHILS % 77.9 % (36.0-66.0); PLATELET COUNT, AUTOMATED 184 10^3/uL (150-450); WHITE BLOOD COUNT 7.5 10^3/uL (4.0-10.0)
[2022-09-17 17:13] LABS: RSV AMPLIFICATION NEGATIVE (NEGATIVE)
[2022-09-17 17:23] LABS: ALBUMIN 3.9 G/DL (3.2-5.2)
[2022-09-17 17:29] LABS: ALKALINE PHOSPHATASE 81 U/L (46-116); CK-MB VALUE MASS 1.5 NG/ML (<3.6)
[2022-09-17 17:30] LABS: ALT/SGPT 36 U/L (7.0-40); AST/SGOT 40 U/L (<34); BILIRUBIN,DIRECT 0.1 MG/DL (<0.4); CPK CREATINE PHOSPHOKINASE 233 U/L (34-145); MB/CK RELATIVE INDEX 0.64 (< OR =4)
[2022-09-17 17:31] LABS: BILIRUBIN,TOTAL 0.3 MG/DL (0.3-1.2); TOTAL PROTEIN 6.6 G/DL (5.7-8.2)
[2022-09-17 17:33] LABS: THYROXINE (T4) 11.1 UG/DL (4.5-10.9)
[2022-09-17 18:08] LABS: THYROID STIMULATING HORMONE 4.413 uIU/ML (0.55-4.78)
[2022-09-17 21:14] LABS: CHLORIDE LEVEL 104 MMOL/L (98-107); POTASSIUM SERUM 4.1 MMOL/L (3.5-5.1); SODIUM LEVEL 143 MMOL/L (136-145)
[2022-09-17 21:15] LABS: CARBON DIOXIDE LEVEL 27 MMOL/L (20-31)
[2022-09-17 21:20] LABS: BLOOD UREA NITROGEN 11 MG/DL (9-23); CALCIUM LEVEL 8.7 MG/DL (8.3-10.6); GLUCOSE, FASTING 115 MG/DL (74-106)
[2022-09-17 21:22] LABS: CREATININE FOR GFR 0.69 MG/DL (0.55-1.30); GLOMERULAR FILTRATION RATE > 60.0 (>45)
== END 2022-09-17 22:27 | disposition left against medical advice (07) ==
LOC: M ED 15:37
DX: Z53.21 Procedure and treatment not carried out due to patient leaving prior to being seen by health care provider (principal)

== ENCOUNTER → 2022-09-27 | Outpatient (CLI) | payer MEDICARE ==
[2022-09-27 12:50] LABS: BASO # 0.1 10^3/uL (0.0-0.2); BASO % 0.6 % (0.0-1.0); EOS # 0.1 10^3/uL (0.0-0.5); EOS % 0.9 % (0.0-3.0); HEMATOCRIT 43.8 % (36.0-47.0); HEMOGLOBIN 13.4 g/dl (12.0-15.5); LYMPH % 14.2 % (24.0-44.0); MEAN CORPUSCULAR HEMOGLOBIN 28.6 pg (27.0-33.0); MEAN CORPUSCULAR HGB CONC 30.6 g/dl (32.0-36.5); MEAN CORPUSCULAR VOLUME 93.6 fl (80.0-96.0); MONO # 0.6 10^3/uL (0.0-0.8); MONO % 4.4 % (2.0-8.0); NEUTROPHILS # 10.7 10^3/uL (1.5-8.5); NEUTROPHILS % 77.9 % (36.0-66.0); PLATELET COUNT, AUTOMATED 403 10^3/uL (150-450); RED BLOOD COUNT 4.68 10^6/uL (4.00-5.40); WHITE BLOOD COUNT 13.8 10^3/uL (4.0-10.0)
[2022-09-27 13:16] LABS: CREATININE, URINE 43.2 MG/DL; MAU/CREAT RATIO 11.5 MCG/MG (0.0-30.0)
[2022-09-27 13:21] LABS: ALBUMIN 3.5 G/DL (3.2-5.2); ALKALINE PHOSPHATASE 75 U/L (46-116); ALT/SGPT 33 U/L (7.0-40); AST/SGOT 19 U/L (<34); BILIRUBIN,TOTAL 0.3 MG/DL (0.3-1.2); BLOOD UREA NITROGEN 21 MG/DL (9-23); CALCIUM LEVEL 8.9 MG/DL (8.3-10.6); CARBON DIOXIDE LEVEL 31 MMOL/L (20-31); CHLORIDE LEVEL 101 MMOL/L (98-107); CHOLESTEROL LEVEL 141 MG/DL (<200); CHOLESTEROL RISK RATIO 1.91 (<5); CREATININE FOR GFR 0.76 MG/DL (0.55-1.30); GLOMERULAR FILTRATION RATE > 60.0 (>45); GLUCOSE, FASTING 217 MG/DL (74-106); HDL CHOLESTEROL 73.5 MG/DL (>40); LDL CHOLESTEROL 39.7 MG/DL (<100); NON-HDL-C 68 MG/DL; POTASSIUM SERUM 4.5 MMOL/L (3.5-5.1); SODIUM LEVEL 138 MMOL/L (136-145); THYROID STIMULATING HORMONE 2.581 uIU/ML (0.55-4.78); TOTAL PROTEIN 6.4 G/DL (5.7-8.2); TRIGLYCERIDES LEVEL 139 MG/DL (<150)
[2022-09-27 13:22] LABS: TOTAL 25(OH) VITAMIN D 18.3 NG/ML (20.0-100.0)
[2022-09-27 13:23] LABS: FOLATE 17.95 NG/ML (>5.4); VITAMIN B12 LEVEL 344 PG/ML (211-911)
[2022-09-27 17:24] LABS: HEMOGLOBIN A1c 7.2 % (4.0-6.0)
== END ==
LOC: M WUC 09:35
PROVIDERS: ATTEND Family Medicine
DX: E11.9 Type 2 diabetes mellitus without complications (principal); E03.9 Hypothyroidism, unspecified; E78.2 Mixed hyperlipidemia; R93.2 Abnormal findings on diagnostic imaging of liver and biliary tract; R53.83 Other fatigue

== ENCOUNTER 2022-10-17 16:38 | Emergency (ER) | payer MEDICARE ==
[~2022-10-17] VITALS: Ht 160 cm; Wt 89.7 kg
[2022-10-17 16:39] VITALS: BP 142/88
== END 2022-10-17 20:27 | disposition left against medical advice (07) ==
LOC: M ED 16:38
DX: Z53.21 Procedure and treatment not carried out due to patient leaving prior to being seen by health care provider (principal)

== ENCOUNTER 2023-06-10 19:16 | Emergency (ER) | payer MEDICARE ==
[~2023-06-10] VITALS: Ht 160 cm; Wt 86.4 kg
[~2023-06-10 19:16] MED LIST changes: +DICL100G10 TOP; -DICL1GEL3 TOP; -DOXY100C81 PO; +DOXY100C82 PO; +FLUT50SP17; -FLUTISP; -GABA-283 PO; +GABA-284 PO
[2023-06-10 19:17] VITALS: BP 144/76; TEMP 98.6; O2SAT 95
[2023-06-10 20:19] LABS: BASO # 0.1 10^3/uL (0.0-0.2); BASO % 0.5 % (0.0-1.0); EOS # 0.2 10^3/uL (0.0-0.5); HEMATOCRIT 43.7 % (36.0-47.0); LYMPH # 1.7 10^3/uL (1.5-5.0); LYMPH % 13.7 % (24.0-44.0); MEAN CORPUSCULAR HEMOGLOBIN 28.9 pg (27.0-33.0); MEAN CORPUSCULAR VOLUME 90.3 fl (80.0-96.0); MONO % 8.3 % (2.0-8.0); NEUTROPHILS # 9.1 10^3/uL (1.5-8.5); NEUTROPHILS % 75.3 % (36.0-66.0); PLATELET COUNT, AUTOMATED 258 10^3/uL (150-450); RED BLOOD COUNT 4.84 10^6/uL (4.00-5.40); WHITE BLOOD COUNT 12.1 10^3/uL (4.0-10.0)
[2023-06-10 20:24] LABS: ERYTHROCYTE SEDIMENTATION RATE 31 mm/hr (0-30)
== END 2023-06-10 21:41 | disposition left against medical advice (07) ==
LOC: M ED 19:16
DX: Z53.21 Procedure and treatment not carried out due to patient leaving prior to being seen by health care provider (principal)

== ENCOUNTER → 2024-01-22 | Outpatient (CLI) | payer MEDICARE ==
[~2024-01-22] MED LIST changes: +CELE0.09; -CELE1CAP9; -FLUT50SP17; +FLUTISP
== END ==
LOC: M SOG 07:57
PROVIDERS: ATTEND Physician Assistant
DX: M25.532 Pain in left wrist (principal); M19.032 Primary osteoarthritis, left wrist; R22.32 Localized swelling, mass and lump, left upper limb

== ENCOUNTER → 2024-02-19 | Outpatient (CLI) | payer MEDICARE | LOC: M PLAIMG 10:04 | PROVIDERS: ATTEND Physician Assistant | DX: M25.532 Pain in left wrist (principal); M67.432 Ganglion, left wrist ==

== ENCOUNTER → 2024-02-25 | Outpatient (CLI) | payer MEDICARE ==
[~2024-02-25] MED LIST changes: +DOXY-323 PO; -DOXY-443 PO
== END ==
LOC: M PLAIMG 10:33
PROVIDERS: ATTEND Physician Assistant Medical
DX: R06.02 Shortness of breath (principal)

== ENCOUNTER 2024-03-01 11:04 | Emergency (ER) | payer MEDICAID, MEDICARE, SELFPAY ==
[~2024-03-01] VITALS: Ht 160 cm; Wt 83.7 kg
[2024-03-01 11:58] LABS: VENOUS BASE EXCESS 3.7 (-2.0-2.0); VENOUS HCO3 30.6 MMOL/L (23.0-27.0); VENOUS O2 SATURATION 85.4 % (60.0-80.0); VENOUS PARTIAL PRESSURE CO2 55.2 mmHg (38.0-50.0); VENOUS PARTIAL PRESSURE O2 50.2 mmHg (30.0-50.0); VENOUS PH 7.361 UNITS (7.330-7.430); VENOUS STANDARD HCO3 27.4 MMOL/L; VENOUS TOTAL CO2 32.2 MMOL/L (24.0-28.0)
[2024-03-01 12:01] LABS: BASO # 0.1 10^3/uL (0.0-0.2); BASO % 0.5 % (0.0-1.0); EOS # 0.3 10^3/uL (0.0-0.5); EOS % 3.3 % (0.0-3.0); HEMATOCRIT 42.8 % (36.0-47.0); LYMPH # 2.4 10^3/uL (1.5-5.0); LYMPH % 24.3 % (24.0-44.0); MEAN CORPUSCULAR HEMOGLOBIN 29.5 pg (27.0-33.0); MEAN CORPUSCULAR HGB CONC 32.7 g/dl (32.0-36.5); MEAN CORPUSCULAR VOLUME 90.3 fl (80.0-96.0); MONO # 0.9 10^3/uL (0.0-0.8); MONO % 9.5 % (2.0-8.0); NEUTROPHILS % 62.1 % (36.0-66.0); PLATELET COUNT, AUTOMATED 262 10^3/uL (150-450); RED BLOOD COUNT 4.74 10^6/uL (4.00-5.40); WHITE BLOOD COUNT 9.7 10^3/uL (4.0-10.0)
[2024-03-01 12:42] LABS: ALBUMIN 3.9 G/DL (3.2-5.2); ALKALINE PHOSPHATASE 103 U/L (46-116); ALT/SGPT 28 U/L (7.0-40); AST/SGOT 22 U/L (<34); BILIRUBIN,DIRECT 0.1 MG/DL (<0.4); BILIRUBIN,TOTAL 0.3 MG/DL (0.3-1.2); BLOOD UREA NITROGEN 20 MG/DL (9-23); CARBON DIOXIDE LEVEL 31 MMOL/L (20-31); CHLORIDE LEVEL 103 MMOL/L (98-107); CREATININE FOR GFR 0.69 MG/DL (0.55-1.30); GLOMERULAR FILTRATION RATE > 60.0 (>45); GLUCOSE, FASTING 86 MG/DL (74-106); POTASSIUM SERUM 4.1 MMOL/L (3.5-5.1); SODIUM LEVEL 140 MMOL/L (136-145); THYROID STIMULATING HORMONE 5.894 uIU/ML (0.55-4.78); THYROXINE (T4) 9.3 UG/DL (4.5-10.9)
[2024-03-01 13:56] VITALS: BP 151/92; TEMP 98.6; O2SAT 98
== END 2024-03-01 14:30 | disposition home or self-care (01) ==
LOC: M ED 11:04
DX: J06.9 Acute upper respiratory infection, unspecified (principal); J44.9 Chronic obstructive pulmonary disease, unspecified; B34.1 Enterovirus infection, unspecified; I45.10 Unspecified right bundle-branch block; I50.22 Chronic systolic (congestive) heart failure; E11.9 Type 2 diabetes mellitus without complications; I11.0 Hypertensive heart disease with heart failure; E78.5 Hyperlipidemia, unspecified; F17.210 Nicotine dependence, cigarettes, uncomplicated; Z88.0 Allergy status to penicillin; Z88.8 Allergy status to other drugs, medicaments and biological substances; Z79.51 Long term (current) use of inhaled steroids; Z79.84 Long term (current) use of oral hypoglycemic drugs; Z79.899 Other long term (current) drug therapy

== ENCOUNTER → 2024-03-04 | Outpatient (CLI) | payer MEDICARE ==
[2024-03-04 19:06] LABS: HEMOGLOBIN A1c 6.3 % (4.0-6.0)
[2024-03-04 19:18] LABS: CREATININE, URINE 114.2 MG/DL; MAU/CREAT RATIO 15.7 MCG/MG (0.0-30.0)
[2024-03-04 19:24] LABS: ALKALINE PHOSPHATASE 102 U/L (46-116); ALT/SGPT 27 U/L (7.0-40); AST/SGOT 24 U/L (<34); BILIRUBIN,TOTAL 0.2 MG/DL (0.3-1.2); BLOOD UREA NITROGEN 25 MG/DL (9-23); CALCIUM LEVEL 9.1 MG/DL (8.3-10.6); CARBON DIOXIDE LEVEL 31 MMOL/L (20-31); CHLORIDE LEVEL 107 MMOL/L (98-107); CHOLESTEROL LEVEL 159 MG/DL (<200); CHOLESTEROL RISK RATIO 2.58 (<5); CREATININE FOR GFR 0.77 MG/DL (0.55-1.30); GLOMERULAR FILTRATION RATE > 60.0 (>45); GLUCOSE, FASTING 152 MG/DL (74-106); HDL CHOLESTEROL 61.5 MG/DL (>40); LDL CHOLESTEROL 56.5 MG/DL (<100); NON-HDL-C 97.5 MG/DL; POTASSIUM SERUM 4.2 MMOL/L (3.5-5.1); SODIUM LEVEL 141 MMOL/L (136-145); THYROID STIMULATING HORMONE 2.663 uIU/ML (0.55-4.78); TOTAL PROTEIN 6.9 G/DL (5.7-8.2); TRIGLYCERIDES LEVEL 205 MG/DL (<150)
== END ==
LOC: M WUC 15:31
PROVIDERS: ATTEND Family Medicine
DX: E11.9 Type 2 diabetes mellitus without complications (principal); E78.2 Mixed hyperlipidemia; E03.9 Hypothyroidism, unspecified; M25.511 Pain in right shoulder

== ENCOUNTER → 2024-03-04 | Outpatient (CLI) | payer MEDICARE ==
[2024-03-04 18:48] LABS: BASO # 0.1 10^3/uL (0.0-0.2); BASO % 0.5 % (0.0-1.0); EOS # 0.3 10^3/uL (0.0-0.5); EOS % 3.1 % (0.0-3.0); HEMATOCRIT 44.1 % (36.0-47.0); HEMOGLOBIN 14.2 g/dl (12.0-15.5); LYMPH # 3.4 10^3/uL (1.5-5.0); LYMPH % 30.5 % (24.0-44.0); MEAN CORPUSCULAR HEMOGLOBIN 29.2 pg (27.0-33.0); MEAN CORPUSCULAR HGB CONC 32.2 g/dl (32.0-36.5); MEAN CORPUSCULAR VOLUME 90.7 fl (80.0-96.0); MONO # 0.9 10^3/uL (0.0-0.8); NEUTROPHILS # 6.4 10^3/uL (1.5-8.5); NEUTROPHILS % 57.5 % (36.0-66.0); PLATELET COUNT, AUTOMATED 299 10^3/uL (150-450); RED BLOOD COUNT 4.86 10^6/uL (4.00-5.40); WHITE BLOOD COUNT 11.1 10^3/uL (4.0-10.0)
[2024-03-04 19:15] LABS: ERYTHROCYTE SEDIMENTATION RATE 21 mm/hr (0-30)
[2024-03-04 19:19] LABS: URIC ACID 4.6 MG/DL (3.1-7.8)
[2024-03-04 19:20] LABS: C REACTIVE PROTEIN QUANTITATIV < 0.40 MG/DL (<1.0)
[2024-03-04 19:22] LABS: ALBUMIN 4.1 G/DL (3.2-5.2); ALKALINE PHOSPHATASE 103 U/L (46-116); ALT/SGPT 27 U/L (7.0-40); AST/SGOT 24 U/L (<34); BILIRUBIN,TOTAL 0.3 MG/DL (0.3-1.2); BLOOD UREA NITROGEN 24 MG/DL (9-23); CARBON DIOXIDE LEVEL 27 MMOL/L (20-31); CHLORIDE LEVEL 104 MMOL/L (98-107); CREATININE FOR GFR 0.74 MG/DL (0.55-1.30); GLOMERULAR FILTRATION RATE > 60.0 (>45); GLUCOSE, FASTING 150 MG/DL (74-106); POTASSIUM SERUM 4.2 MMOL/L (3.5-5.1); RHEUMATOID FACTOR QUANT 6.7 IU/ML (<14); SODIUM LEVEL 138 MMOL/L (136-145); TOTAL PROTEIN 6.9 G/DL (5.7-8.2)
[2024-03-04 19:24] LABS: THYROID STIMULATING HORMONE 2.184 uIU/ML (0.55-4.78)
[2024-03-12 18:08] LABS: ANA (HEP2) Negative (.); CYCLIC CITRULLINATED PEPTIDE 8 units (0-19); HLA-B27 Negative (.)
== END ==
LOC: M WUC 15:39
PROVIDERS: ATTEND Physician Assistant
DX: M25.50 Pain in unspecified joint (principal); E07.9 Disorder of thyroid, unspecified

== ENCOUNTER → 2024-03-25 | Outpatient (CLI) | payer MEDICARE ==
[~2024-03-25] MED LIST changes: +PROHANCE 279.3MG/ML 15ML VIAL ONE
== END ==
LOC: M PLAIMG 14:27
PROVIDERS: ATTEND Physician Assistant
DX: M25.532 Pain in left wrist (principal); M67.432 Ganglion, left wrist; M19.032 Primary osteoarthritis, left wrist
CPT/HCPCS: 73223; A9576

== ENCOUNTER → 2024-04-09 | Outpatient (CLI) | payer MEDICARE ==
[~2024-04-09] MED LIST changes: -PROHANCE 279.3MG/ML 15ML VIAL ONE
== END ==
LOC: M SOG 14:11
PROVIDERS: ATTEND Orthopaedic Surgery Hand Surgery
DX: M25.532 Pain in left wrist (principal)

== ENCOUNTER 2024-05-16 17:32 | Emergency (ER) | payer MEDICARE ==
[~2024-05-16] VITALS: Ht 160 cm; Wt 84.1 kg
[2024-05-16 19:35] LABS: BASO # 0.1 10^3/uL (0.0-0.2); BASO % 0.8 % (0.0-1.0); EOS # 0.2 10^3/uL (0.0-0.5); EOS % 2.7 % (0.0-3.0); HEMATOCRIT 41.6 % (36.0-47.0); HEMOGLOBIN 13.5 g/dl (12.0-15.5); LYMPH # 2.5 10^3/uL (1.5-5.0); LYMPH % 27.6 % (24.0-44.0); MEAN CORPUSCULAR HEMOGLOBIN 29.7 pg (27.0-33.0); MEAN CORPUSCULAR HGB CONC 32.5 g/dl (32.0-36.5); MEAN CORPUSCULAR VOLUME 91.4 fl (80.0-96.0); MONO # 0.8 10^3/uL (0.0-0.8); MONO % 9.4 % (2.0-8.0); NEUTROPHILS # 5.3 10^3/uL (1.5-8.5); NEUTROPHILS % 59.2 % (36.0-66.0); PLATELET COUNT, AUTOMATED 239 10^3/uL (150-450); RED BLOOD COUNT 4.55 10^6/uL (4.00-5.40); WHITE BLOOD COUNT 8.9 10^3/uL (4.0-10.0)
[2024-05-16 19:44] LABS: ERYTHROCYTE SEDIMENTATION RATE 17 mm/hr (0-30)
[2024-05-16 19:48] LABS: INR 0.97; PARTIAL THROMBOPLASTIN TIME 28.6 SECONDS (24.8-34.2); PROTHROMBIN TIME 12.6 SECONDS (12.5-14.5)
[2024-05-16 19:59] LABS: C REACTIVE PROTEIN QUANTITATIV < 0.40 MG/DL (<1.0)
[2024-05-16 20:02] LABS: ALBUMIN 3.8 G/DL (3.2-5.2); ALKALINE PHOSPHATASE 104 U/L (46-116); ALT/SGPT 22 U/L (7.0-40); AST/SGOT 20 U/L (<34); BILIRUBIN,DIRECT < 0.1 MG/DL (<0.4); BILIRUBIN,TOTAL 0.3 MG/DL (0.3-1.2); BLOOD UREA NITROGEN 21 MG/DL (9-23); CALCIUM LEVEL 9.4 MG/DL (8.3-10.6); CARBON DIOXIDE LEVEL 33 MMOL/L (20-31); CHLORIDE LEVEL 105 MMOL/L (98-107); CREATININE FOR GFR 0.89 MG/DL (0.55-1.30); GLOMERULAR FILTRATION RATE > 60.0 (>45); GLUCOSE, FASTING 140 MG/DL (74-106); POTASSIUM SERUM 4.3 MMOL/L (3.5-5.1); SODIUM LEVEL 141 MMOL/L (136-145); TOTAL PROTEIN 6.7 G/DL (5.7-8.2)
[2024-05-16 20:08] LABS: PROCALCITONIN 0.04 ng/ml
[2024-05-16] MEDS ORDERED: CIPR-249 PO (20:18)
[2024-05-16 20:23] VITALS: BP 161/79; TEMP 96; O2SAT 96
[2024-05-16] MEDS: CIPROFLOXACIN 500MG TABLET PO ONE (20:57)
== END 2024-05-16 21:00 | disposition home or self-care (01) ==
LOC: M ED 17:32
DX: E11.621 Type 2 diabetes mellitus with foot ulcer (principal); L97.519 Non-pressure chronic ulcer of other part of right foot with unspecified severity; Z88.0 Allergy status to penicillin; Z88.8 Allergy status to other drugs, medicaments and biological substances; Z79.899 Other long term (current) drug therapy; Z79.84 Long term (current) use of oral hypoglycemic drugs

== ENCOUNTER 2024-05-30 18:20 | Inpatient (IN) | payer MEDICARE ==
[~2024-05-30] VITALS: Ht 160 cm; Wt 88.4 kg
[~2024-05-30 18:20] MED LIST changes: -CELE0.09; +CELE0.09 PO; +CIPR-249 PO
[2024-05-30] MEDS ORDERED: VANCOMYCIN HCL 1,750 MG in NS 250 ML IV ONE (19:10)
[2024-05-30 19:15] LABS: BASO # 0.1 10^3/uL (0.0-0.2); BASO % 0.4 % (0.0-1.0); EOS # 0.1 10^3/uL (0.0-0.5); EOS % 0.6 % (0.0-3.0); HEMATOCRIT 40.4 % (36.0-47.0); HEMOGLOBIN 13.1 g/dl (12.0-15.5); LYMPH # 1.2 10^3/uL (1.5-5.0); LYMPH % 8.5 % (24.0-44.0); MEAN CORPUSCULAR HEMOGLOBIN 29.5 pg (27.0-33.0); MEAN CORPUSCULAR HGB CONC 32.4 g/dl (32.0-36.5); MONO % 7.2 % (2.0-8.0); NEUTROPHILS # 11.8 10^3/uL (1.5-8.5); NEUTROPHILS % 82.9 % (36.0-66.0); PLATELET COUNT, AUTOMATED 286 10^3/uL (150-450); RED BLOOD COUNT 4.44 10^6/uL (4.00-5.40); WHITE BLOOD COUNT 14.3 10^3/uL (4.0-10.0)
[2024-05-30 19:23] LABS: ERYTHROCYTE SEDIMENTATION RATE 70 mm/hr (0-30)
[2024-05-30 19:27] LABS: INR 1.08; PARTIAL THROMBOPLASTIN TIME 28.4 SECONDS (24.8-34.2); PROTHROMBIN TIME 13.7 SECONDS (12.5-14.5)
[2024-05-30 19:40] LABS: ALBUMIN 3.7 G/DL (3.2-5.2); ALKALINE PHOSPHATASE 108 U/L (46-116); ALT/SGPT 24 U/L (7.0-40); AST/SGOT 19 U/L (<34); BILIRUBIN,DIRECT 0.1 MG/DL (<0.4); BILIRUBIN,TOTAL 0.3 MG/DL (0.3-1.2); BLOOD UREA NITROGEN 18 MG/DL (9-23); CALCIUM LEVEL 8.6 MG/DL (8.3-10.6); CARBON DIOXIDE LEVEL 28 MMOL/L (20-31); CHLORIDE LEVEL 103 MMOL/L (98-107); CREATININE FOR GFR 0.79 MG/DL (0.55-1.30); GLOMERULAR FILTRATION RATE > 60.0 (>45); GLUCOSE, FASTING 181 MG/DL (74-106); POTASSIUM SERUM 4.5 MMOL/L (3.5-5.1); SODIUM LEVEL 136 MMOL/L (136-145)
[2024-05-30] MEDS: NS 1,000 ML IV ONE (20:10)
[2024-05-30] MEDS: VANCOMYCIN HCL 1,000 MG, VIAL MATE ADAPTER 1 EACH in D5W 250 ML IV ONE (20:11)
[2024-05-30] MEDS ORDERED: LEVO25TA5 PO (21:39)
[2024-05-30] MEDS ORDERED: AZEL23SP (21:39)
[2024-05-30] MEDS ORDERED: VENL75CA2 PO (21:39)
[2024-05-30] MEDS ORDERED: ALBU2.5V10 INH (21:39)
[2024-05-30] MEDS ORDERED: METF500T13 PO (21:39)
[2024-05-30] MEDS ORDERED: ARNU1INH INH (21:46)
[2024-05-30] MEDS ORDERED: CYCL-707 PO (21:46)
[2024-05-30] MEDS: VANCOMYCIN HCL 750 MG, VIAL MATE ADAPTER 1 EACH in D5W 250 ML IV ONE (21:47)
[2024-05-30] MEDS ORDERED: HOME MED LIST COMPLETE! XX SCH (21:50)
[2024-05-30] MEDS ORDERED: VANCOMYCIN HCL 750 MG, VIAL MATE ADAPTER 1 EACH in D5W 250 ML IV SCH (21:50)
[2024-05-30] MEDS ORDERED: GLUCAGON INJ 1MG VIAL SC PRN (21:50)
[2024-05-30] MEDS ORDERED: ACETAMINOPHEN TAB 650MG DOSE (2X325MG) PO PRN (21:50)
[2024-05-30] MEDS ORDERED: GLUCOSE 4 GM CHEW PO PRN (21:50)
[2024-05-30] MEDS ORDERED: DEXTROSE 50% 50ML SYRINGE IV PRN (21:50)
[2024-05-30] MEDS ORDERED: KETOROLAC 30 MG/ML 1ML VIAL IV PRN (22:00)
[2024-05-30] MEDS ORDERED: CYCLOBENZAPRINE 10MG TABLET PO PRN (22:00)
[2024-05-30] MEDS: ATORVASTATIN 20 MG TAB PO SCH (22:38)
[2024-05-30] MEDS: ALBUTEROL SULFATE 2.5MG/0.5ML INH NEB SOLN INH PRN (22:40)
[2024-05-30] MEDS: VENLAFAXINE **XR** 75MG CAPSULE PO SCH (22:57)
[2024-05-30] MEDS: traZODone 50 MG TAB PO SCH (22:58)
[2024-05-31] MEDS: ERTAPENEM SODIUM 1 GM in NS MINI-BAG PLUS 50 ML IV SCH (00:21)
[2024-05-31] MEDS: INSULIN LISPRO (NovoLOG) PER UNIT SC SCH ×2 (00:21→21:00)
[2024-05-31] MEDS: VANCOMYCIN HCL 1,000 MG, VIAL MATE ADAPTER 1 EACH in D5W 250 ML IV SCH (05:46)
[2024-05-31] MEDS: LEVOTHYROXINE 25MCG TABLET (0.025MG) PO SCH (05:46)
[2024-05-31 06:13] LABS: HEMATOCRIT 39.6 % (36.0-47.0); HEMOGLOBIN 12.7 g/dl (12.0-15.5); MEAN CORPUSCULAR HEMOGLOBIN 29.3 pg (27.0-33.0); MEAN CORPUSCULAR HGB CONC 32.1 g/dl (32.0-36.5); MEAN CORPUSCULAR VOLUME 91.2 fl (80.0-96.0); PLATELET COUNT, AUTOMATED 257 10^3/uL (150-450); RED BLOOD COUNT 4.34 10^6/uL (4.00-5.40); WHITE BLOOD COUNT 10.7 10^3/uL (4.0-10.0)
[2024-05-31 06:45] LABS: ALBUMIN 3.1 G/DL (3.2-5.2); ALKALINE PHOSPHATASE 96 U/L (46-116); ALT/SGPT 19 U/L (7.0-40); AST/SGOT 17 U/L (<34); BILIRUBIN,TOTAL 0.4 MG/DL (0.3-1.2); BLOOD UREA NITROGEN 14 MG/DL (9-23); CALCIUM LEVEL 8.6 MG/DL (8.3-10.6); CARBON DIOXIDE LEVEL 30 MMOL/L (20-31); CHLORIDE LEVEL 109 MMOL/L (98-107); CREATININE FOR GFR 0.67 MG/DL (0.55-1.30); GLOMERULAR FILTRATION RATE > 60.0 (>45); GLUCOSE, FASTING 129 MG/DL (74-106); POTASSIUM SERUM 4.4 MMOL/L (3.5-5.1); SODIUM LEVEL 142 MMOL/L (136-145); TOTAL PROTEIN 6.2 G/DL (5.7-8.2)
[2024-05-31] MEDS ORDERED: CEFEPIME HCL 2 GM in D5W MINI-BAG PLUS 50 ML IV SCH (06:55)
[2024-05-31] MEDS: TIOTROPIUM INHALER/CAPSULE (SPIRIVA) INH SCH (08:12)
[2024-05-31] MEDS: FLUTICASONE HFA 110MCG 12GM INHALER (FLOVENT) INH SCH (08:12)
[2024-05-31] MEDS: MEROPENEM INJ 1 GM in IV 1 EA IV SCH (08:40)
[2024-05-31] MEDS: LOSARTAN 50MG TABLET PO SCH (08:40)
[2024-05-31] MEDS: GABAPENTIN 400MG CAP PO SCH (08:40)
[2024-05-31] MEDS: metroNIDAZOLE 500 MG in IV 1 EA IV SCH (10:13)
[2024-05-31] MEDS: FLUTICASONE PROP 0.05% NASAL SPRAY 16 GM (FLONASE) SCH (10:14)
[2024-05-31 14:47] VITALS: BP 151/67; TEMP 98.9; O2SAT 93
[2024-05-31 17:15] VITALS: BP 117/83; TEMP 98.1; O2SAT 95
[2024-05-31] MEDS ORDERED: GLUCAGON INJ 1MG VIAL SC PRN (20:30)
[2024-05-31] MEDS ORDERED: DEXTROSE 50% 50ML SYRINGE IV PRN (20:30)
[2024-05-31] MEDS ORDERED: GLUCOSE 4 GM CHEW PO PRN (20:30)
[2024-05-31 21:09] VITALS: BP 129/79; TEMP 97.9; O2SAT 92
[2024-06-01 05:04] VITALS: BP 159/78; TEMP 97.7; O2SAT 95
[2024-06-01] MEDS: LevoFLOXacin 750 MG TABLET PO SCH (05:07)
[2024-06-01 08:22] LABS: HEMATOCRIT 38.8 % (36.0-47.0); HEMOGLOBIN 12.8 g/dl (12.0-15.5); MEAN CORPUSCULAR HEMOGLOBIN 29.6 pg (27.0-33.0); MEAN CORPUSCULAR VOLUME 89.6 fl (80.0-96.0); PLATELET COUNT, AUTOMATED 298 10^3/uL (150-450); RED BLOOD COUNT 4.33 10^6/uL (4.00-5.40); WHITE BLOOD COUNT 7.7 10^3/uL (4.0-10.0)
[2024-06-01] MEDS: INSULIN LISPRO (NovoLOG) PER UNIT SC SCH (08:26)
[2024-06-01 08:47] LABS: BLOOD UREA NITROGEN 17 MG/DL (9-23); CALCIUM LEVEL 8.3 MG/DL (8.3-10.6); CARBON DIOXIDE LEVEL 28 MMOL/L (20-31); CHLORIDE LEVEL 106 MMOL/L (98-107); CREATININE FOR GFR 0.69 MG/DL (0.55-1.30); GLOMERULAR FILTRATION RATE > 60.0 (>45); GLUCOSE, FASTING 137 MG/DL (74-106); POTASSIUM SERUM 4.1 MMOL/L (3.5-5.1); SODIUM LEVEL 139 MMOL/L (136-145)
[2024-06-01 12:00] VITALS: BP 150/81; TEMP 96.8; O2SAT 94
[2024-06-01 19:59] VITALS: BP 158/86; TEMP 96.4; O2SAT 95
[2024-06-01] MEDS: HYDROMORPHONE HCL 0.5 MG/ 0.5 ML SYRINGE IV PRN (20:13)
[2024-06-01] MEDS: ENOXAPARIN 40MG/0.4ML SYRINGE (J1650 PER 10MG) SC SCH (20:13)
[2024-06-01] MEDS ORDERED: ENOXAPARIN 40MG/0.4ML SYRINGE (J1650 PER 10MG) SC SCH (21:00)
[2024-06-02 05:51] VITALS: BP 138/73; TEMP 98.1; O2SAT 95
[2024-06-02 08:06] VITALS: BP 140/74
[2024-06-02 12:00] VITALS: BP 113/74; TEMP 97.5; O2SAT 91
[2024-06-02] MEDS ORDERED: PROB250C PO (12:34)
[2024-06-02] MEDS ORDERED: LEVO1TAB40 PO (12:34)
[2024-06-02] MEDS ORDERED: METR-265 PO (12:34)
[2024-06-02] MEDS ORDERED: OXYC1TAB23 PO (12:37)
[2024-06-02 13:20] VITALS: O2SAT 94
== END 2024-06-02 14:16 | disposition home or self-care (01) | DRG 624 ==
LOC: M ED 18:20 → M ED INP 21:46 → M MS5PR 05-31 16:50
PROVIDERS: ADMIT Internal Medicine; ATTEND Internal Medicine
PROC: 0JBQ0ZZ Excision of Right Foot Subcutaneous Tissue and Fascia, Open Approach (ICD-10-PCS; principal; 2024-05-31)
DX: E11.621 Type 2 diabetes mellitus with foot ulcer (principal); E11.42 Type 2 diabetes mellitus with diabetic polyneuropathy; I11.0 Hypertensive heart disease with heart failure; M19.90 Unspecified osteoarthritis, unspecified site; L03.031 Cellulitis of right toe; J45.909 Unspecified asthma, uncomplicated; J44.9 Chronic obstructive pulmonary disease, unspecified; L08.9 Local infection of the skin and subcutaneous tissue, unspecified; L97.519 Non-pressure chronic ulcer of other part of right foot with unspecified severity; G47.00 Insomnia, unspecified; I50.9 Heart failure, unspecified; E78.5 Hyperlipidemia, unspecified; G47.33 Obstructive sleep apnea (adult) (pediatric); F41.9 Anxiety disorder, unspecified; F32.A Depression, unspecified; F17.210 Nicotine dependence, cigarettes, uncomplicated; E03.9 Hypothyroidism, unspecified; Z79.890 Hormone replacement therapy; Z79.84 Long term (current) use of oral hypoglycemic drugs; Z79.899 Other long term (current) drug therapy; Z88.0 Allergy status to penicillin; Z88.8 Allergy status to other drugs, medicaments and biological substances; Z90.79 Acquired absence of other genital organ(s)

== ENCOUNTER → 2024-08-28 | Outpatient (CLI) | payer MEDICARE ==
[~2024-08-28] MED LIST changes: +ALBU2.5V10 INH; +ARNU1INH INH; +AZEL23SP; +CYCL-707 PO; -DOXY-323 PO; +DOXY-441 PO; +GABA-1635 PO; -GABA800T4 PO; +LEVO1TAB40 PO; +LEVO25TA5 PO; +METF500T13 PO; +METR-265 PO; +OXYC1TAB23 PO; +PROB250C PO; +VENL75CA2 PO
== END ==
LOC: M WUC 09:44
PROVIDERS: ATTEND Physician Assistant
DX: J44.1 Chronic obstructive pulmonary disease with (acute) exacerbation (principal); R05.2 Subacute cough

== ENCOUNTER 2024-11-16 19:11 | Emergency (ER) | payer MEDICARE ==
[~2024-11-16] VITALS: Ht 160 cm; Wt 86.4 kg
[2024-11-16 23:38] LABS: ERYTHROCYTE SEDIMENTATION RATE 35 mm/hr (0-30)
[2024-11-16] MEDS ORDERED: CEPH500C PO (23:53)
[2024-11-16 23:54] LABS: BLOOD UREA NITROGEN 21 MG/DL (9-23); C REACTIVE PROTEIN QUANTITATIV 4.73 MG/DL (<1.0); CALCIUM LEVEL 8.7 MG/DL (8.3-10.6); CARBON DIOXIDE LEVEL 28 MMOL/L (20-31); CHLORIDE LEVEL 106 MMOL/L (98-107); GLOMERULAR FILTRATION RATE > 60.0 (>45); GLUCOSE, FASTING 97 MG/DL (74-106); POTASSIUM SERUM 4.3 MMOL/L (3.5-5.1); SODIUM LEVEL 144 MMOL/L (136-145)
[2024-11-17 00:10] LABS: HEMOGLOBIN 12.6 g/dl (12.0-15.5); MEAN CORPUSCULAR HEMOGLOBIN 29.8 pg (27.0-33.0); MEAN CORPUSCULAR HGB CONC 33.2 g/dl (32.0-36.5); MEAN CORPUSCULAR VOLUME 89.8 fl (80.0-96.0); PLATELET COUNT, AUTOMATED 224 10^3/uL (150-450); RED BLOOD COUNT 4.23 10^6/uL (4.00-5.40); WHITE BLOOD COUNT 7.6 10^3/uL (4.0-10.0)
[2024-11-17] MEDS: CEPHALEXIN 500 MG CAP PO ONE (00:21)
[2024-11-17 00:44] VITALS: BP 153/85; TEMP 97.8; O2SAT 96
== END 2024-11-17 00:45 | disposition home or self-care (01) ==
LOC: EDBD 19:11 → M ED 19:11
DX: E11.621 Type 2 diabetes mellitus with foot ulcer (principal); I10 Essential (primary) hypertension; J44.9 Chronic obstructive pulmonary disease, unspecified; J45.909 Unspecified asthma, uncomplicated; M54.9 Dorsalgia, unspecified; F17.200 Nicotine dependence, unspecified, uncomplicated; Z79.84 Long term (current) use of oral hypoglycemic drugs; Z79.899 Other long term (current) drug therapy; Z88.0 Allergy status to penicillin; Z88.8 Allergy status to other drugs, medicaments and biological substances

== ENCOUNTER → 2025-01-05 | Outpatient (CLI) | payer MEDICARE ==
[~2025-01-05] MED LIST changes: +CEPH500C PO; +DOXY-442 PO; -DOXY100C82 PO
== END ==
LOC: M RAD 14:02
PROVIDERS: ATTEND Internal Medicine Pulmonary Disease
DX: F17.218 Nicotine dependence, cigarettes, with other nicotine-induced disorders (principal)

== ENCOUNTER → 2025-02-22 | Outpatient (CLI) | payer MEDICARE | LOC: M WHC 11:39 | PROVIDERS: ATTEND Family Medicine | DX: Z12.31 Encounter for screening mammogram for malignant neoplasm of breast (principal) ==

== ENCOUNTER → 2025-06-08 | Outpatient (CLI) | payer MEDICARE | LOC: M LAB 14:27 | PROVIDERS: ATTEND Physician Assistant | DX: M25.571 Pain in right ankle and joints of right foot (principal) ==

== ENCOUNTER → 2025-07-15 | Outpatient (CLI) | payer MEDICARE ==
[~2025-07-15] MED LIST changes: +ALBU8.5H INH; +TREL1AER INH
== END ==
LOC: M PLARAD 11:47
PROVIDERS: ATTEND Physician Assistant
DX: M25.571 Pain in right ankle and joints of right foot (principal); R60.1 Generalized edema; R93.6 Abnormal findings on diagnostic imaging of limbs

== ENCOUNTER 2025-07-30 19:55 | Emergency (ER) | payer MEDICARE ==
[~2025-07-30] VITALS: Ht 160 cm; Wt 89.7 kg
[2025-07-30] MEDS: ACETAMINOPHEN 500 MG TAB PO ONE (22:04)
[2025-07-30 22:18] LABS: BASO # 0.1 10^3/uL (0.0-0.2); BASO % 0.7 % (0.0-1.0); EOS # 0.3 10^3/uL (0.0-0.5); EOS % 3.2 % (0.0-3.0); LYMPH # 2.1 10^3/uL (1.5-5.0); LYMPH % 25.2 % (24.0-44.0); MONO # 1.1 10^3/uL (0.0-0.8); MONO % 13.1 % (2.0-8.0); NEUTROPHILS # 4.9 10^3/uL (1.5-8.5); NEUTROPHILS % 57.3 % (36.0-66.0); PLATELET COUNT, AUTOMATED 274 10^3/uL (150-450)
[2025-07-30 23:06] LABS: ALT/SGPT 22 U/L (7.0-40); AST/SGOT 26 U/L (<34); C REACTIVE PROTEIN QUANTITATIV < 0.50 MG/DL (<1.0); CALCIUM LEVEL 8.9 MG/DL (8.3-10.6); CARBON DIOXIDE LEVEL 28 MMOL/L (20-31); CHLORIDE LEVEL 102 MMOL/L (98-107); CREATININE FOR GFR 0.78 MG/DL (0.55-1.30); GLOMERULAR FILTRATION RATE 82.2 (>45); POTASSIUM SERUM 4.7 MMOL/L (3.5-5.1); SODIUM LEVEL 142 MMOL/L (136-145)
[2025-07-30] MEDS ORDERED: NS 0.9% IV ONE (23:20)
[2025-07-30] MEDS ORDERED: [UNRECOGNIZED DRUG - OTHER] IV ONE (23:20)
[2025-07-30] MEDS: NS 500 ML IV ONE (23:20)
[2025-07-31 01:45] VITALS: BP 149/78; TEMP 98.4; O2SAT 94
== END 2025-07-31 01:57 | disposition home or self-care (01) ==
LOC: M ED 19:55
DX: S91.101A Unspecified open wound of right great toe without damage to nail, initial encounter (principal); I45.10 Unspecified right bundle-branch block; I49.8 Other specified cardiac arrhythmias; E11.9 Type 2 diabetes mellitus without complications; I10 Essential (primary) hypertension; M54.50 Low back pain, unspecified; E78.5 Hyperlipidemia, unspecified; J45.909 Unspecified asthma, uncomplicated; F17.200 Nicotine dependence, unspecified, uncomplicated; F12.10 Cannabis abuse, uncomplicated; Z87.442 Personal history of urinary calculi; Z88.0 Allergy status to penicillin; Z88.8 Allergy status to other drugs, medicaments and biological substances; Z79.52 Long term (current) use of systemic steroids; Z79.02 Long term (current) use of antithrombotics/antiplatelets; Z79.899 Other long term (current) drug therapy; Z79.4 Long term (current) use of insulin; Y92.9 Unspecified place or not applicable; Y93.9 Activity, unspecified; Y99.9 Unspecified external cause status

== ENCOUNTER 2025-08-04 06:01 | Day surgery (SDC) | payer MEDICARE ==
[~2025-08-04] VITALS: Ht 160 cm; Wt 88.3 kg
[2025-08-04] MEDS ORDERED: ACETAMINOPHEN 1000MG/100ML IV BAG As Ordered ONE (06:38)
[2025-08-04] MEDS ORDERED: ONDANSETRON 4MG 2ML VIAL As Ordered ONE (06:48)
[2025-08-04] MEDS ORDERED: dexAMETHasone 4 MG/ML 1 ML VIAL As Ordered ONE (06:48)
[2025-08-04] MEDS ORDERED: KETOROLAC 30 MG/ML 1 ML VIAL As Ordered ONE (06:48)
[2025-08-04] MEDS ORDERED: LIDOCAINE 2% 100 MG/5 ML SDV (FOR ANES.) As Ordered ONE (06:50)
[2025-08-04] MEDS ORDERED: MIDAZOLAM INJ 2 MG/2 ML VIAL As Ordered ONE (06:52)
[2025-08-04] MEDS ORDERED: dexmedeTOMIDine (4 MCG/ML) 200 MCG/50 ML BTL As Ordered ONE (06:55)
[2025-08-04] MEDS: FAMOTIDINE 20 MG/2 ML VIAL IVP ONE (07:00)
[2025-08-04] MEDS: LR 1,000 ML IV SCH (07:20)
[2025-08-04] MEDS: MIDAZOLAM INJ 2 MG/2 ML VIAL IV PRN (07:50)
[2025-08-04] MEDS: ROPIvacaine 0.5% 30ML VIAL PN ONE (07:52)
[2025-08-04] MEDS: dexAMETHasone 10 MG/1 ML VIAL PRES.FREE PN ONE (07:52)
[2025-08-04] MEDS ORDERED: ceFAZolin SOD 2 GM IV ONCE IV ONE (08:25)
[2025-08-04 09:06] VITALS: TEMP 97.6
[2025-08-04 09:30] VITALS: BP 142/79; O2SAT 94
== END 2025-08-04 09:40 | disposition home or self-care (01) ==
LOC: M SDC 06:01
PROVIDERS: ATTEND Orthopaedic Surgery Hand Surgery
DX: M67.432 Ganglion, left wrist (principal); I10 Essential (primary) hypertension; E78.5 Hyperlipidemia, unspecified; E03.9 Hypothyroidism, unspecified; E11.9 Type 2 diabetes mellitus without complications; F12.10 Cannabis abuse, uncomplicated; F17.210 Nicotine dependence, cigarettes, uncomplicated; F41.9 Anxiety disorder, unspecified; F32.A Depression, unspecified; J44.9 Chronic obstructive pulmonary disease, unspecified; Z79.51 Long term (current) use of inhaled steroids; Z79.84 Long term (current) use of oral hypoglycemic drugs; Z79.899 Other long term (current) drug therapy; Z88.0 Allergy status to penicillin
CPT/HCPCS: 25111; 88305; J0131; J0665; J0688; J1100; J1885; J2250; J2405; J2795; J3010